=== PATIENT | male | born 1965 | race African-American/Black ===

== ENCOUNTER 2016-04-15 14:05 | Inpatient (IN) | payer BC ==
[~2016-04-15] VITALS: Ht 182.9 cm; Wt 110.7 kg
[2016-04-15] VITALS (11 sets, daily range): BP systolic 136–170; BP diastolic 62–84
[~2016-04-15 14:05] MED LIST: AMIT25TA PO; CARV3.12 PO; DULO60CA6 PO; GABA-585 PO; GLIP10TA13 PO; INSU100C SQ; INSU100I13 SQ; LOSA25TA4 PO; METF750T PO; METF750T2 PO; NORT10CA PO; PANT40TA3 PO; PROM25TA10 PO; SILD100T PO; VENTOLIN HFA8 GM IH
[2016-04-15] MEDS ORDERED: DEXTROSE 50% 25 GM / 50ML DISP.SYRIN. IV PRN (17:15)
[2016-04-15] MEDS ORDERED: ALPRAZOLAM 0.5 MG TABLET PO PRN (17:30)
[2016-04-15] MEDS ORDERED: SPIR25TA3 PO (17:36)
[2016-04-15] MEDS ORDERED: ASPI325T4 PO (17:36)
[2016-04-15] MEDS ORDERED: SACU1TAB7 PO (17:36)
[2016-04-15] MEDS ORDERED: MULT-246 PO (17:36)
[2016-04-15] MEDS ORDERED: GLIP5TAB10 PO (17:36)
[2016-04-15] MEDS ORDERED: DULO60CA6 PO (17:36)
[2016-04-15] MEDS ORDERED: DIGO125T PO (17:36)
[2016-04-15] MEDS ORDERED: POTA10CA PO (17:36)
[2016-04-15] MEDS ORDERED: FURO-68 PO (17:36)
[2016-04-15] MEDS ORDERED: NAPR500T3 PO (17:36)
[2016-04-15] MEDS ORDERED: ALPR0.5T PO (17:36)
[2016-04-15] MEDS ORDERED: CARV12.52 PO (17:36)
[2016-04-15] MEDS: FUROSEMIDE INJ 100 MG in IV NORMAL SALINE 100ML 100 ML IV PRN (18:04)
[2016-04-15] MEDS: DOBUTAMINE 500MG/250ML PREMIX 250 ML IV PRN (18:04)
--- NOTE | 2016-04-15 18:05 | EKG ---
[facility] [address] [place] [address] Test Date: 2016-04-15 Test Time: 17:56:10 Pat Name: MEGHANA URENA Department: Room: 261 1 Gender: M Chairman Of The Board: BELINDA : 1965 Requested By: CAIN GATICA Order Number: [id number] Reading MD: Halie English Measurements Intervals [place] Rate: 88 P: 54 NC: 164 QRS: 71 QRSD: 88 T: 26 QT: 300 QTc: 366 Interpretive Statements SINUS RHYTHM NORMAL EKG Electronically Signed On 04-21-2016 14:27:53 EXECUTIVE ASSISTANT TO PRESIDENT by Halie English
[2016-04-15 18:07] LABS: HEMATOCRIT 31.8 % (39.0-53.0); HEMOGLOBIN 10.3 g/dL (13.0-17.5); RED BLOOD COUNT 3.41 x10^6/uL (4.30-5.70); RED CELL DISTRIBUTION WIDTH 13.9 % (11.5-14.5); WHITE BLOOD COUNT 4.8 x10^3/uL (4.0-11.0)
[2016-04-15] MEDS: GLIPIZIDE 5 MG TABLET PO SCH (18:14)
[2016-04-15 18:15] LABS: PROTHROMBIN TIME PATIENT 12.4 SEC (11.7-14.0)
[2016-04-15] MEDS ORDERED: INSULIN ASPART 300 UNITS/3 ML INSULN.PEN SQ ONE (18:15)
[2016-04-15 18:30] LABS: ALBUMIN 3.4 g/dL (3.4-5.0); ALBUMIN/GLOBULIN RATIO 0.9 (1.0-1.7); CALCIUM 9.2 mg/dL (8.5-10.1); CREATININE 1.2 mg/dL (0.7-1.3); GFR 77.9; TOTAL BILIRUBIN 0.3 mg/dL (0.2-1.0)
--- NOTE | 2016-04-15 18:36 | PDOC1 ---
History and Physical Date of Admission Date of Admission DATE: 04/15/16 TIME: 18:22 Identification/Chief Complaint Chief Complaint Dyspnea History of Present Illness History of Present Illness Pt is a 51 y o gentleman that has an advanced nonischemic cardiomyopathy, DM, HTN and previous substance abuse problems. The pt has been having progressive dyspnea, edema and a 20 lbs weight gain in a matter of days. He was given diuretics as an out-pt but this did not improve his condition and the urine output was poor. Pt brought in as a direct admission for further treatment. Past Medical History Cardiovascular: HTN, Hyperlipidemia Pulmonary: Bronchitis GI: GERD Heme/Onc: Anemia NOS Psych: Anxiety, Addictions Endocrine: Diabetes Social History ALCOHOL: none Drugs: None Current Medications Current Medications Current Medications Dobutamine HCl/ Dextrose 250 ml @ 0 mls/hr CONT PRN IV SEE I/O RECORD Last administered on 04/15/16 18:04; Start 04/15/16 at 17:15 Furosemide/Sodium Chloride (Lasix Drip/Iv Sodium Chloride 0.9% 100ml) 100 ml @ 0 mls/hr CONT PRN IV SEE I/O RECORD Last administered on 04/15/16 18:04; Start 04/15/16 at 17:15 Insulin Detemir (Levemir) 30 units QHS SQ ; Start 04/15/16 at 21:00 Insulin Aspart (Novolog) 0-5 UNITS TIDWMEALS SQ ; Start 04/16/16 at 08:00 Dextrose 12.5 gm PRN Q15MIN PRN IV SEE COMMENTS; Start 04/15/16 at 17:15 Alprazolam (Xanax) 0.5 mg PRN Q8HRS PRN PO ANXIETY / AGITATION; Start 04/15/16 at 17:30 Aspirin (Meena Aspirin) 325 mg DAILY PO ; Start 04/16/16 at 09:00 Carvedilol (Coreg) 12.5 mg BIDWMEALS PO ; Start 04/16/16 at 08:00 Digoxin (Lanoxin) 125 mcg DAILY PO ; Start 04/16/16 at 09:00 Gabapentin (Neurontin) 100 mg HS PO ; Start 04/15/16 at 21:00 Glipizide (Glucotrol) 5 mg BIDBFRMEAL PO Last administered on 04/15/16 18:14; Start 04/15/16 at 18:00 Naproxen (Naprosyn) 500 mg BID PO ; Start 04/15/16 at 21:00 Nortriptyline HCl (Pamelor) 10 mg QHS PO ; Start 04/15/16 at 21:00 Sacubitril/ Valsartan (Entresto 49 Mg-51 Mg) 1 tab BID PO ; Start 04/15/16 at 21: 00 Duloxetine HCl (Cymbalta) 60 mg DAILY PO ; Start 04/16/16 at 09:00 Insulin Aspart (Novolog) 15 units TIDBFRMEAL SQ ; Start 04/16/16 at 18:00 Metformin HCl (Glucophage Xr) 750 mg DAILYWBKFT PO ; Start 04/16/16 at 08:00 Multivitamins/ Calcium (Thera M Plus) 1 tab DAILY PO ; Start 04/16/16 at 09:00 Potassium Chloride (Klor-Con) 10 meq DAILYWBKFT PO ; Start 04/16/16 at 08:00 Albuterol Sulfate (Ventolin Neb Soln) 2.5 mg RTQID NEB ; Start 04/15/16 at 20:00 Insulin Aspart (Novolog) 15 units 1X ONCE SQ Last administered on 04/15/16t 18: 16; Start 04/15/16 at 18:15; Stop 04/15/16 at 18:16; Status DC Active Scripts Active Reported Xanax (Alprazolam) 0.5 Mg Tablet 0.5 Mg PO PRN Q8HRS PRN Naproxen 500 Mg Tablet 500 Mg PO BID Entresto 49 mg-51 mg Tablet (Sacubitril/Valsartan) 1 Each Tablet 1 Each PO BID Multi-Vitamin Daily (Multivitamin) 1 Each Tablet 1 Each PO DAILY Potassium Chloride 10 Meq Capsule.er 10 Meq PO DAILY Carvedilol 12.5 Mg Tablet 12.5 Mg PO BIDWMEALS Digoxin 125 Mcg Tablet 125 Mcg PO DAILY Spironolactone 25 Mg Tablet 25 Mg PO BID Aspirin 325 Mg Tablet 325 Mg PO DAILY Lasix (Furosemide) 40 Mg Tablet 40 Mg PO DAILY Cymbalta (Duloxetine Hcl) 60 Mg Capsule.dr 60 Mg PO DAILY Glipizide 5 Mg Tablet 5 Mg PO BID Ventolin Hfa (Albuterol Sulfate) 8 Gm Hfa.aer.ad 8 Gm IH Glucophage Xr (Metformin Hcl) 750 Mg Tab.er.24h 750 Mg PO DAILYWBKFT Nortriptyline Hcl 10 Mg Capsule 2 Cap PO QHS Neurontin (Gabapentin) 100 Mg Capsule 100 Mg PO HS Humalog (Insulin Lispro) 100 Unit/1 Ml Cartridge 15 Unit SQ TIDBFRMEAL Lantus Solostar (Insulin Glargine,Hum.rec.anlog) 100 Unit/1 Ml Insuln.pen 30 Unit SQ QHS Allergies Allergies: Coded Allergies: No Known Drug Allergies (Unverified , 07/28/15) Physical Exam General: Alert, Oriented X3, Cooperative HEENT: Atraumatic, PERRLA Lungs: Other (basal rales, mild wheezing) Heart: S1S2, RRR, jugular vein distention, other (I/ syst murmur) Abdomen: Normal bowel sounds, Soft, Other (possible ascitis) Rectal Exam: not examined Extremities: Other ((++) edema) Neuro: Normal gait, Normal speech, Strength at 5/5 X4 ext, Normal tone, Sensation intact, Cranial nerves 3-12 NL, Reflexes 2+ Vitals Vitals Vital Signs Date Time Temp Pulse Resp B/P Pulse Ox O2 Delivery O2 Flow Rate FiO2 04/15/16 16:31 98.2 90 17 136/76 97 Room Air 98.2 Labs Labs Laboratory Tests Test 04/15/16 17:09 04/15/16 18:00 Glucose (Fingerstick) 410mg/dL (70-99) White Blood Count 4.8x10^3/uL (4.0-11.0) Red Blood Count 3.41x10^6/uL (4.30-5.70) Hemoglobin 10.3g/dL (13.0-17.5) Hematocrit 31.8% (39.0-53.0) Mean Corpuscular Volume 93fL (79-100) Mean Corpuscular Hemoglobin 30pg (25-35) Mean Corpuscular Hemoglobin Concent 32g/dL (31-37) Red Cell Distribution Width 13.9% (11.5-14.5) Platelet Count 194x10^3/uL (140-400) Laboratory Tests Test 04/15/16 17:09 04/15/16 18:00 Glucose (Fingerstick) 410mg/dL (70-99) White Blood Count 4.8x10^3/uL (4.0-11.0) Red Blood Count 3.41x10^6/uL (4.30-5.70) Hemoglobin 10.3g/dL (13.0-17.5) Hematocrit 31.8% (39.0-53.0) Mean Corpuscular Volume 93fL (79-100) Mean Corpuscular Hemoglobin 30pg (25-35) Mean Corpuscular Hemoglobin Concent 32g/dL (31-37) Red Cell Distribution Width 13.9% (11.5-14.5) Platelet Count 194x10^3/uL (140-400) VTE Prophylaxis Ordered VTE Prophylaxis Devices: Yes VTE Pharmacological Prophylaxi: No Assessment/Plan Assessment/Plan This pt comes in with acute on chronic CHF secondary to systolic dysfunction. He also has a very poorly controlled DM and may have renal insufficiency. Will start a dobutamine drip, a Lasix drip and increase the pt's insulin as well as controlling the diet. Check labs. Depending on progress will then make further recommendations for work up and treatment. CAIN GATICA MD Apr 15, 2016 18:36
[2016-04-15 20:09] LABS: BARBITURATES NEG (NEG); BENZODIAZEPINES NEG (NEG); CANNABINOIDS NEG (NEG); COCAINE POS (NEG); METHADONE NEG (NEG); OPIATES NEG (NEG); PHENCYCLIDINE NEG (NEG)
[2016-04-15 20:10] LABS: ETHANOL, URINE NEG (NEG)
[2016-04-15] MEDS: ALBUTEROL SULFATE 2.5 MG/3 ML NEBU. NEB SCH (20:24)
[2016-04-15] MEDS: GABAPENTIN 100 MG CAPSULE. PO SCH (21:18)
[2016-04-15] MEDS: NORTRIPTYLINE 10 MG CAPSULE PO SCH (21:18)
[2016-04-15] MEDS: NAPROXEN 500 MG TABLET PO SCH (21:19)
[2016-04-15] MEDS: SACUBITRIL/VALSARTAN 49/51MG TABLET. PO SCH (21:20)
[2016-04-15] MEDS: INSULIN DETEMIR 300 UNITS/3 ML INSULN.PEN. SQ SCH (21:24)
[2016-04-16] VITALS (14 sets, daily range): BP systolic 97–146; BP diastolic 52–78
[2016-04-16] MEDS: FUROSEMIDE INJ 100 MG in IV NORMAL SALINE 100ML 100 ML IV PRN ×2 (03:06→13:36)
[2016-04-16] MEDS: ALBUTEROL SULFATE 2.5 MG/3 ML NEBU. NEB SCH ×4 (07:37→19:35)
[2016-04-16] MEDS: DOBUTAMINE 500MG/250ML PREMIX 250 ML IV PRN ×2 (08:20→23:26)
[2016-04-16] MEDS: NAPROXEN 500 MG TABLET PO SCH ×2 (08:22→21:29)
[2016-04-16] MEDS: DULOXETINE HCL 30 MG CAPSULE.DR. PO SCH (08:23)
[2016-04-16] MEDS: CARVEDILOL 12.5 MG TABLET PO SCH ×2 (08:23→16:30)
[2016-04-16] MEDS: GLIPIZIDE 5 MG TABLET PO SCH ×2 (08:23→16:25)
[2016-04-16] MEDS: ASPIRIN 325 MG TABLET PO SCH (08:24)
[2016-04-16] MEDS: POTASSIUM CHLORIDE 10 MEQ TABLET.ER. PO SCH (08:24)
[2016-04-16] MEDS: DIGOXIN 125 MCG TABLET PO SCH (08:24)
[2016-04-16] MEDS: MULTIVITAMIN with MINERAL TABLET. PO SCH (08:24)
[2016-04-16] MEDS: METFORMIN XR 500 MG TAB.ER.24H PO SCH (08:25)
[2016-04-16] MEDS: INSULIN ASPART 300 UNITS/3 ML INSULN.PEN SQ SCH ×4 (08:37→17:08)
[2016-04-16] MEDS: SACUBITRIL/VALSARTAN 49/51MG TABLET. PO SCH ×2 (08:41→21:30)
--- NOTE | 2016-04-16 08:57 | RAD ---
Chest, 2 views, 04/15/2016: History: Shortness of breath, congestive heart failure The depth of inspiration on the PA view is suboptimal. The heart size and pulmonary vascularity are normal. No pulmonary infiltrates are seen. There is no evidence of pleural fluid. IMPRESSION: No acute cardiopulmonary abnormality is detected.
--- NOTE | 2016-04-16 10:22 | PDOC ---
PROGRESS NOTES Subjective Subjective Patient reports he is feeling better. His subjective improvement of the edema and stated he is not as short of breath. No new complaints. Objective Objective Vital Signs Date Time Temp Pulse Resp B/P Pulse Ox O2 Delivery O2 Flow Rate FiO2 04/16/16 08:41 106 115/70 04/16/16 08:00 Room Air 04/16/16 07:39 98 04/16/16 06:34 98.3 18 98.3 04/16/16 02:20 96.0 Intake and Output 04/16/16 07:00 Intake Total 606 ml Output Total 1000 ml Balance -394 ml Intake Oral 300 ml Other 306 ml Output Urine Total 1000 ml # Voids 6 Physical Exam Abdomen: Normal bowel sounds, Other (mildly distended with possible acities) Heart: Regular rate, Normal S1, Normal S2, No murmurs Extremities: No clubbing, No cyanosis, Other (mild edema of lower extremities) General: Alert, Oriented X3, Cooperative, No acute distress HEENT: Atraumatic Lungs: Normal air movement, Other (mild diffuse crackles improving) Neck: Supple, Other (JVD improving) Neuro: Other (no gross focal deficits) Assessment Assessment Patient presented with acute on chronic CHF and is showing clinical improvement on lasix and dobutamine drip. His vitals have remained stable. He also has poorly controlled diabetes and has been having labile blood sugars since admission. His initial BMP was significant for only a low normal NA of 135 and BUN of 32. I am going to be discussing with the patient when I can talk to him alone without family present about his future, options, prognosis. I think that a lot of the patient's deterioration is that he is secretively continuing to have a problem with substance abuse and is hiding this from the family. If this is the case I also have to tell him that he will not be able to be considered for a heart transplant. Plan Plan of Care Will continue with current medical therapy, will eventually transition to oral lasix. Will obtain a BMP now and in the AM to assess electrolyte status, renal function and blood sugar; will adjust medications accordingly. Comment Review of Relevant I have reviewed the following items rc (where applicable) has been applied. Labs Laboratory Tests Test 04/15/16 17:09 04/15/16 18:00 04/15/16 19:30 04/15/16 20:59 Glucose (Fingerstick) 410mg/dL (70-99) 305mg/dL (70-99) White Blood Count 4.8x10^3/uL (4.0-11.0) Red Blood Count 3.41x10^6/uL (4.30-5.70) Hemoglobin 10.3g/dL (13.0-17.5) Hematocrit 31.8% (39.0-53.0) Mean Corpuscular Volume 93fL (79-100) Mean Corpuscular Hemoglobin 30pg (25-35) Mean Corpuscular Hemoglobin Concent 32g/dL (31-37) Red Cell Distribution Width 13.9% (11.5-14.5) Platelet Count 194x10^3/uL (140-400) Prothrombin Time 12.4SEC (11.7-14.0) Prothromb Time International Ratio 1.0 (0.8-1.1) Activated Partial Thromboplast Time 26SEC (24-38) Sodium Level 135mmol/L (136-145) Potassium Level 5.0mmol/L (3.5-5.1) Chloride Level 99mmol/L (98-107) Carbon Dioxide Level 28mmol/L (21-32) Anion Gap 8 (6-14) Blood Urea Nitrogen 32mg/dL (8-26) Creatinine 1.2mg/dL (0.7-1.3) Estimated GFR (Cockcroft-Gault) 77.9 BUN/Creatinine Ratio 27 (6-20) Glucose Level 382mg/dL (70-99) Calcium Level 9.2mg/dL (8.5-10.1) Total Bilirubin 0.3mg/dL (0.2-1.0) Aspartate Amino Transf (AST/SGOT) 13U/L (15-37) Alanine Aminotransferase (ALT/SGPT) 21U/L (16-63) Alkaline Phosphatase 87U/L (46-116) Total Protein 7.0g/dL (6.4-8.2) Albumin 3.4g/dL (3.4-5.0) Albumin/Globulin Ratio 0.9 (1.0-1.7) Urine Opiates Screen Neg (NEG) Urine Methadone Screen Neg (NEG) Urine Barbiturates Neg (NEG) Urine Phencyclidine Screen Neg (NEG) Urine Amphetamine/Methamphetamine Neg (NEG) Urine Benzodiazepines Screen Neg (NEG) Urine Cocaine Screen Pos (NEG) Urine Cannabinoids Screen Neg (NEG) Urine Ethyl Alcohol Neg (NEG) Test 04/16/16 07:22 Glucose (Fingerstick) 154mg/dL (70-99) Laboratory Tests Test 04/15/16 17:09 04/15/16 18:00 04/15/16 19:30 04/15/16 20:59 Glucose (Fingerstick) 410mg/dL (70-99) 305mg/dL (70-99) White Blood Count 4.8x10^3/uL (4.0-11.0) Red Blood Count 3.41x10^6/uL (4.30-5.70) Hemoglobin 10.3g/dL (13.0-17.5) Hematocrit 31.8% (39.0-53.0) Mean Corpuscular Volume 93fL (79-100) Mean Corpuscular Hemoglobin 30pg (25-35) Mean Corpuscular Hemoglobin Concent 32g/dL (31-37) Red Cell Distribution Width 13.9% (11.5-14.5) Platelet Count 194x10^3/uL (140-400) Prothrombin Time 12.4SEC (11.7-14.0) Prothromb Time International Ratio 1.0 (0.8-1.1) Activated Partial Thromboplast Time 26SEC (24-38) Sodium Level 135mmol/L (136-145) Potassium Level 5.0mmol/L (3.5-5.1) Chloride Level 99mmol/L (98-107) Carbon Dioxide Level 28mmol/L (21-32) Anion Gap 8 (6-14) Blood Urea Nitrogen 32mg/dL (8-26) Creatinine 1.2mg/dL (0.7-1.3) Estimated GFR (Cockcroft-Gault) 77.9 BUN/Creatinine Ratio 27 (6-20) Glucose Level 382mg/dL (70-99) Calcium Level 9.2mg/dL (8.5-10.1) Total Bilirubin 0.3mg/dL (0.2-1.0) Aspartate Amino Transf (AST/SGOT) 13U/L (15-37) Alanine Aminotransferase (ALT/SGPT) 21U/L (16-63) Alkaline Phosphatase 87U/L (46-116) Total Protein 7.0g/dL (6.4-8.2) Albumin 3.4g/dL (3.4-5.0) Albumin/Globulin Ratio 0.9 (1.0-1.7) Urine Opiates Screen Neg (NEG) Urine Methadone Screen Neg (NEG) Urine Barbiturates Neg (NEG) Urine Phencyclidine Screen Neg (NEG) Urine Amphetamine/Methamphetamine Neg (NEG) Urine Benzodiazepines Screen Neg (NEG) Urine Cocaine Screen Pos (NEG) Urine Cannabinoids Screen Neg (NEG) Urine Ethyl Alcohol Neg (NEG) Test 04/16/16 07:22 Glucose (Fingerstick) 154mg/dL (70-99) Medications Current Medications Dobutamine HCl/ Dextrose 250 ml @ 0 mls/hr CONT PRN IV SEE I/O RECORD Last administered on 04/16/16 08:20; Start 04/15/16 at 17:15 Furosemide/Sodium Chloride (Lasix Drip/Iv Sodium Chloride 0.9% 100ml) 100 ml @ 0 mls/hr CONT PRN IV SEE I/O RECORD Last administered on 04/16/16 03:06; Start 04/15/16 at 17:15 Insulin Detemir (Levemir) 30 units QHS SQ Last administered on 04/15/16 21:24; Start 04/15/16 at 21:00 Insulin Aspart (Novolog) 0-5 UNITS TIDWMEALS SQ Last administered on 04/16/16 08:37; Start 04/16/16 at 08:00 Dextrose 12.5 gm PRN Q15MIN PRN IV SEE COMMENTS; Start 04/15/16 at 17:15 Alprazolam (Xanax) 0.5 mg PRN Q8HRS PRN PO ANXIETY / AGITATION; Start 04/15/16 at 17:30 Aspirin (Meena Aspirin) 325 mg DAILY PO Last administered on 04/16/16 08:24; Start 04/16/16 at 09:00 Carvedilol (Coreg) 12.5 mg BIDWMEALS PO Last administered on 04/16/16 08:23; Start 04/16/16 at 08:00 Digoxin (Lanoxin) 125 mcg DAILY PO Last administered on 04/16/16 08:24; Start 04/16/16 at 09:00 Gabapentin (Neurontin) 100 mg HS PO Last administered on 04/15/16 21:18; Start 04/15/16 at 21:00 Glipizide (Glucotrol) 5 mg BIDBFRMEAL PO Last administered on 04/16/16 08:23; Start 04/15/16 at 18:00 Naproxen (Naprosyn) 500 mg BID PO Last administered on 04/16/16 08:22; Start at 21:00 Nortriptyline HCl (Pamelor) 10 mg QHS PO Last administered on 04/15/16 21:18; Start 04/15/16 at 21:00 Sacubitril/ Valsartan (Entresto 49 Mg-51 Mg) 1 tab BID PO Last administered on 04/16/16 08:41; Start 04/15/16 at 21:00 Duloxetine HCl (Cymbalta) 60 mg DAILY PO Last administered on 04/16/16 08:23; Start 04/16/16 at 09:00 Insulin Aspart (Novolog) 15 units TIDBFRMEAL SQ ; Start 04/16/16 at 18:00 Metformin HCl (Glucophage Xr) 750 mg DAILYWBKFT PO Last administered on 08:25; Start 04/16/16 at 08:00 Multivitamins/ Calcium (Thera M Plus) 1 tab DAILY PO Last administered on 08:24; Start 04/16/16 at 09:00 Potassium Chloride (Klor-Con) 10 meq DAILYWBKFT PO Last administered on 08:24; Start 04/16/16 at 08:00 Albuterol Sulfate (Ventolin Neb Soln) 2.5 mg RTQID NEB Last administered on 04/16 07:37; Start 04/15/16 at 20:00 Insulin Aspart (Novolog) 15 units 1X ONCE SQ Last administered on 04/15/16 18: 16; Start 04/15/16 at 18:15; Stop 04/15/16 at 18:16; Status DC Active Scripts Active Reported Xanax (Alprazolam) 0.5 Mg Tablet 0.5 Mg PO PRN Q8HRS PRN Naproxen 500 Mg Tablet 500 Mg PO BID Entresto 49 mg-51 mg Tablet (Sacubitril/Valsartan) 1 Each Tablet 1 Each PO BID Multi-Vitamin Daily (Multivitamin) 1 Each Tablet 1 Each PO DAILY Potassium Chloride 10 Meq Capsule.er 10 Meq PO DAILY Carvedilol 12.5 Mg Tablet 12.5 Mg PO BIDWMEALS Digoxin 125 Mcg Tablet 125 Mcg PO DAILY Spironolactone 25 Mg Tablet 25 Mg PO BID Aspirin 325 Mg Tablet 325 Mg PO DAILY Lasix (Furosemide) 40 Mg Tablet 40 Mg PO DAILY Cymbalta (Duloxetine Hcl) 60 Mg Capsule.dr 60 Mg PO DAILY Glipizide 5 Mg Tablet 5 Mg PO BID Ventolin Hfa (Albuterol Sulfate) 8 Gm Hfa.aer.ad 8 Gm IH Glucophage Xr (Metformin Hcl) 750 Mg Tab.er.24h 750 Mg PO DAILYWBKFT Nortriptyline Hcl 10 Mg Capsule 2 Cap PO QHS Neurontin (Gabapentin) 100 Mg Capsule 100 Mg PO HS Humalog (Insulin Lispro) 100 Unit/1 Ml Cartridge 15 Unit SQ TIDBFRMEAL Lantus Solostar (Insulin Glargine,Hum.rec.anlog) 100 Unit/1 Ml Insuln.pen 30 Unit SQ QHS Vitals/I & O Vital Sign - Last 24 Hours 04/15/16 04/15/16 04/15/16 04/15/16 16:05 16:31 18:00 18:30 Temp 98.2 98.2 Pulse 90 86 94 Resp 17 B/P 136/76 138/66 170/84 Pulse Ox 97 O2 Delivery Room Air Room Air 04/15/16 04/15/16 04/15/16 04/15/16 19:25 19:25 19:45 20:25 Temp 98.0 98.0 Pulse 101 97 Resp 18 B/P 140/78 141/62 Pulse Ox 97 O2 Delivery Room Air Room Air Room Air 04/15/16 04/15/16 04/15/16 04/15/16 20:26 20:30 21:20 21:20 Pulse 98 97 96 B/P 141/62 141/62 136/70 O2 Delivery Room Air 04/15/16 04/15/16 04/15/16 04/15/16 21:30 22:00 22:35 23:30 Temp 98.3 98.3 Pulse 96 108 102 98 Resp 16 B/P 136/70 140/74 140/74 138/64 Pulse Ox 95 O2 Delivery Room Air 04/16/16 04/16/16 04/16/16 04/16/16 00:30 01:30 02:20 03:11 Temp 98.0 98.0 Pulse 94 92 95 89 Resp 16 B/P 146/77 144/74 124/70 124/70 O2 Delivery Room Air Room Air O2 Flow Rate 96.0 04/16/16 04/16/16 04/16/16 04/16/16 04:20 06:34 07:39 08:00 Temp 98.3 98.3 Pulse 96 100 Resp 18 B/P 143/78 108/55 Pulse Ox 97 98 O2 Delivery Room Air Room Air Room Air 04/16/16 04/16/16 04/16/16 08:23 08:24 08:41 Pulse 101 102 106 B/P 115/70 115/70 115/70 Intake and Output 04/15/16 04/15/16 04/16/16 15:00 23:00 07:00 Intake Total 300 ml 306 ml Output Total 500 ml 500 ml Balance -200 ml -194 ml CAIN GATICA MD Apr 16, 2016 10:22
[2016-04-16 12:25] LABS: CALCIUM 9.7 mg/dL (8.5-10.1); CREATININE 1.3 mg/dL (0.7-1.3); POTASSIUM 4.1 mmol/L (3.5-5.1)
[2016-04-16] MEDS: NORTRIPTYLINE 10 MG CAPSULE PO SCH (21:30)
[2016-04-16] MEDS: GABAPENTIN 100 MG CAPSULE. PO SCH (21:31)
[2016-04-16] MEDS: INSULIN DETEMIR 300 UNITS/3 ML INSULN.PEN. SQ SCH (21:35)
[2016-04-17] VITALS (27 sets, daily range): BP systolic 86–137; BP diastolic 50–76
[2016-04-17] MEDS: FUROSEMIDE INJ 100 MG in IV NORMAL SALINE 100ML 100 ML IV PRN (00:32)
[2016-04-17 05:56] LABS: CALCIUM 9.6 mg/dL (8.5-10.1); CREATININE 1.5 mg/dL (0.7-1.3); GFR 60.2; POTASSIUM 3.7 mmol/L (3.5-5.1)
[2016-04-17] MEDS: INSULIN ASPART 300 UNITS/3 ML INSULN.PEN SQ SCH ×6 (08:00→17:54)
[2016-04-17] MEDS: NAPROXEN 500 MG TABLET PO SCH (08:17)
[2016-04-17] MEDS: DIGOXIN 125 MCG TABLET PO SCH (08:17)
[2016-04-17] MEDS: ASPIRIN 325 MG TABLET PO SCH (08:17)
[2016-04-17] MEDS: DULOXETINE HCL 30 MG CAPSULE.DR. PO SCH (08:17)
[2016-04-17] MEDS: METFORMIN XR 500 MG TAB.ER.24H PO SCH (08:18)
[2016-04-17] MEDS: POTASSIUM CHLORIDE 10 MEQ TABLET.ER. PO SCH (08:18)
[2016-04-17] MEDS: MULTIVITAMIN with MINERAL TABLET. PO SCH (08:18)
[2016-04-17] MEDS: GLIPIZIDE 5 MG TABLET PO SCH ×2 (08:18→17:04)
[2016-04-17] MEDS: SACUBITRIL/VALSARTAN 49/51MG TABLET. PO SCH ×2 (08:18→22:11)
[2016-04-17] MEDS: CARVEDILOL 12.5 MG TABLET PO SCH ×2 (08:22→17:00)
[2016-04-17] MEDS: ALBUTEROL SULFATE 2.5 MG/3 ML NEBU. NEB SCH ×4 (08:27→19:16)
--- NOTE | 2016-04-17 10:16 | PDOC ---
PROGRESS NOTES Subjective Subjective Patient reports his shortness of breath remains improved despite 3 lb gain in last 24 hours. Patient did report some dizziness while standing to use the restroom. No further complaints. Objective Objective Vital Signs Date Time Temp Pulse Resp B/P Pulse Ox O2 Delivery O2 Flow Rate FiO2 04/17/16 08:27 99 Room Air 04/17/16 08:22 100 116/65 04/17/16 07:48 98.0 17 98.0 04/16/16 02:20 96.0 Intake and Output 04/17/16 07:00 Intake Total 2060 ml Output Total 1475 ml Balance 585 ml Intake Oral 1400 ml IV Total 660 ml Output Urine Total 1475 ml # Voids 4 # Bowel Movements 1 Physical Exam Abdomen: Normal bowel sounds, Other (fluid evident in abdomen on exam) Heart: Regular rate, Normal S2 Extremities: No clubbing, No cyanosis, Other (mild edema in lower extremities) General: Alert, Oriented X3, Cooperative, No acute distress HEENT: Atraumatic Lungs: Clear to auscultation, Normal air movement Neck: No JVD Neuro: Other (no gross focal deficits) Assessment Assessment Acute on chronic CHF - on lasix and dobutamine drip, 3 lb weight gain in last 24 hours with some evidence of fluid overload in the abdomen Diabetes - reasonably controlled JANAK - BUN 39 Creatinine 1.5 Metabolic acidosis - CO2 of 33, could be secondary to diuresis Plan Plan of Care Will continue dobutamine drip for another 24 hours. Will discontinue lasix for now, consulting nephrology for further recommendations regarding renal function. Comment Review of Relevant I have reviewed the following items rc (where applicable) has been applied. Labs Laboratory Tests Test 04/15/16 17:09 04/15/16 18:00 04/15/16 19:30 04/15/16 20:59 Glucose (Fingerstick) 410mg/dL (70-99) 305mg/dL (70-99) White Blood Count 4.8x10^3/uL (4.0-11.0) Red Blood Count 3.41x10^6/uL (4.30-5.70) Hemoglobin 10.3g/dL (13.0-17.5) Hematocrit 31.8% (39.0-53.0) Mean Corpuscular Volume 93fL (79-100) Mean Corpuscular Hemoglobin 30pg (25-35) Mean Corpuscular Hemoglobin Concent 32g/dL (31-37) Red Cell Distribution Width 13.9% (11.5-14.5) Platelet Count 194x10^3/uL (140-400) Prothrombin Time 12.4SEC (11.7-14.0) Prothromb Time International Ratio 1.0 (0.8-1.1) Activated Partial Thromboplast Time 26SEC (24-38) Sodium Level 135mmol/L (136-145) Potassium Level 5.0mmol/L (3.5-5.1) Chloride Level 99mmol/L (98-107) Carbon Dioxide Level 28mmol/L (21-32) Anion Gap 8 (6-14) Blood Urea Nitrogen 32mg/dL (8-26) Creatinine 1.2mg/dL (0.7-1.3) Estimated GFR (Cockcroft-Gault) 77.9 BUN/Creatinine Ratio 27 (6-20) Glucose Level 382mg/dL (70-99) Calcium Level 9.2mg/dL (8.5-10.1) Total Bilirubin 0.3mg/dL (0.2-1.0) Aspartate Amino Transf (AST/SGOT) 13U/L (15-37) Alanine Aminotransferase (ALT/SGPT) 21U/L (16-63) Alkaline Phosphatase 87U/L (46-116) Total Protein 7.0g/dL (6.4-8.2) Albumin 3.4g/dL (3.4-5.0) Albumin/Globulin Ratio 0.9 (1.0-1.7) Urine Opiates Screen Neg (NEG) Urine Methadone Screen Neg (NEG) Urine Barbiturates Neg (NEG) Urine Phencyclidine Screen Neg (NEG) Urine Amphetamine/Methamphetamine Neg (NEG) Urine Benzodiazepines Screen Neg (NEG) Urine Cocaine Screen Pos (NEG) Urine Cannabinoids Screen Neg (NEG) Urine Ethyl Alcohol Neg (NEG) Test 04/16/16 07:22 04/16/16 11:38 04/16/16 11:43 04/16/16 16:27 Glucose (Fingerstick) 154mg/dL (70-99) 298mg/dL (70-99) 315mg/dL (70-99) Sodium Level 136mmol/L (136-145) Potassium Level 4.1mmol/L (3.5-5.1) Chloride Level 96mmol/L (98-107) Carbon Dioxide Level 36mmol/L (21-32) Anion Gap 4 (6-14) Blood Urea Nitrogen 31mg/dL (8-26) Creatinine 1.3mg/dL (0.7-1.3) Estimated GFR (Cockcroft-Gault) 71.0 Glucose Level 300mg/dL (70-99) Calcium Level 9.7mg/dL (8.5-10.1) Test 04/16/16 21:27 04/17/16 04:21 04/17/16 07:57 Glucose (Fingerstick) 147mg/dL (70-99) 124mg/dL (70-99) Sodium Level 141mmol/L (136-145) Potassium Level 3.7mmol/L (3.5-5.1) Chloride Level 100mmol/L (98-107) Carbon Dioxide Level 33mmol/L (21-32) Anion Gap 8 (6-14) Blood Urea Nitrogen 39mg/dL (8-26) Creatinine 1.5mg/dL (0.7-1.3) Estimated GFR (Cockcroft-Gault) 60.2 Glucose Level 97mg/dL (70-99) Calcium Level 9.6mg/dL (8.5-10.1) Laboratory Tests Test 04/16/16 11:38 04/16/16 11:43 04/16/16 16:27 04/16/16 21:27 Glucose (Fingerstick) 298mg/dL (70-99) 315mg/dL (70-99) 147mg/dL (70-99) Sodium Level 136mmol/L (136-145) Potassium Level 4.1mmol/L (3.5-5.1) Chloride Level 96mmol/L (98-107) Carbon Dioxide Level 36mmol/L (21-32) Anion Gap 4 (6-14) Blood Urea Nitrogen 31mg/dL (8-26) Creatinine 1.3mg/dL (0.7-1.3) Estimated GFR (Cockcroft-Gault) 71.0 Glucose Level 300mg/dL (70-99) Calcium Level 9.7mg/dL (8.5-10.1) Test 04/17/16 04:21 04/17/16 07:57 Sodium Level 141mmol/L (136-145) Potassium Level 3.7mmol/L (3.5-5.1) Chloride Level 100mmol/L (98-107) Carbon Dioxide Level 33mmol/L (21-32) Anion Gap 8 (6-14) Blood Urea Nitrogen 39mg/dL (8-26) Creatinine 1.5mg/dL (0.7-1.3) Estimated GFR (Cockcroft-Gault) 60.2 Glucose Level 97mg/dL (70-99) Calcium Level 9.6mg/dL (8.5-10.1) Glucose (Fingerstick) 124mg/dL (70-99) Medications Current Medications Dobutamine HCl/ Dextrose 250 ml @ 0 mls/hr CONT PRN IV SEE I/O RECORD Last administered on 04/16/16 23:26; Start 04/15/16 at 17:15 Furosemide/Sodium Chloride (Lasix Drip/Iv Sodium Chloride 0.9% 100ml) 100 ml @ 0 mls/hr CONT PRN IV SEE I/O RECORD Last administered on 04/17/16 00:32; Start 04/15/16 at 17:15 Insulin Detemir (Levemir) 30 units QHS SQ Last administered on 04/16/16 21:35; Start 04/15/16 at 21:00 Insulin Aspart (Novolog) 0-5 UNITS TIDWMEALS SQ Last administered on 04/16/16 17:00; Start 04/16/16 at 08:00 Dextrose 12.5 gm PRN Q15MIN PRN IV SEE COMMENTS; Start 04/15/16 at 17:15 Alprazolam (Xanax) 0.5 mg PRN Q8HRS PRN PO ANXIETY / AGITATION; Start 04/15/16 at 17:30 Aspirin (Meena Aspirin) 325 mg DAILY PO Last administered on 04/17/16 08:17; Start 04/16/16 at 09:00 Carvedilol (Coreg) 12.5 mg BIDWMEALS PO Last administered on 04/17/16 08:22; Start 04/16/16 at 08:00 Digoxin (Lanoxin) 125 mcg DAILY PO Last administered on 04/17/16 08:17; Start 04/16/16 at 09:00 Gabapentin (Neurontin) 100 mg HS PO Last administered on 04/16/16 21:31; Start 04/15/16 at 21:00 Glipizide (Glucotrol) 5 mg BIDBFRMEAL PO Last administered on 04/17/16 08:18; Start 04/15/16 at 18:00 Naproxen (Naprosyn) 500 mg BID PO Last administered on 04/17/16 08:17; Start at 21:00 Nortriptyline HCl (Pamelor) 10 mg QHS PO Last administered on 04/16/16 21:30; Start 04/15/16 at 21:00 Sacubitril/ Valsartan (Entresto 49 Mg-51 Mg) 1 tab BID PO Last administered on 04/17/16 08:18; Start 04/15/16 at 21:00 Duloxetine HCl (Cymbalta) 60 mg DAILY PO Last administered on 04/17/16 08:17; Start 04/16/16 at 09:00 Insulin Aspart (Novolog) 15 units TIDBFRMEAL SQ Last administered on 04/17/16 08:45; Start 04/16/16 at 18:00 Metformin HCl (Glucophage Xr) 750 mg DAILYWBKFT PO Last administered on 08:18; Start 04/16/16 at 08:00 Multivitamins/ Calcium (Thera M Plus) 1 tab DAILY PO Last administered on 08:18; Start 04/16/16 at 09:00 Potassium Chloride (Klor-Con) 10 meq DAILYWBKFT PO Last administered on 08:18; Start 04/16/16 at 08:00 Albuterol Sulfate (Ventolin Neb Soln) 2.5 mg RTQID NEB Last administered on 04/17 08:27; Start 04/15/16 at 20:00 Insulin Aspart (Novolog) 15 units 1X ONCE SQ Last administered on 04/15/16 18: 16; Start 04/15/16 at 18:15; Stop 04/15/16 at 18:16; Status DC Active Scripts Active Reported Xanax (Alprazolam) 0.5 Mg Tablet 0.5 Mg PO PRN Q8HRS PRN Naproxen 500 Mg Tablet 500 Mg PO BID Entresto 49 mg-51 mg Tablet (Sacubitril/Valsartan) 1 Each Tablet 1 Each PO BID Multi-Vitamin Daily (Multivitamin) 1 Each Tablet 1 Each PO DAILY Potassium Chloride 10 Meq Capsule.er 10 Meq PO DAILY Carvedilol 12.5 Mg Tablet 12.5 Mg PO BIDWMEALS Digoxin 125 Mcg Tablet 125 Mcg PO DAILY Spironolactone 25 Mg Tablet 25 Mg PO BID Aspirin 325 Mg Tablet 325 Mg PO DAILY Lasix (Furosemide) 40 Mg Tablet 40 Mg PO DAILY Cymbalta (Duloxetine Hcl) 60 Mg Capsule.dr 60 Mg PO DAILY Glipizide 5 Mg Tablet 5 Mg PO BID Ventolin Hfa (Albuterol Sulfate) 8 Gm Hfa.aer.ad 8 Gm IH Glucophage Xr (Metformin Hcl) 750 Mg Tab.er.24h 750 Mg PO DAILYWBKFT Nortriptyline Hcl 10 Mg Capsule 2 Cap PO QHS Neurontin (Gabapentin) 100 Mg Capsule 100 Mg PO HS Humalog (Insulin Lispro) 100 Unit/1 Ml Cartridge 15 Unit SQ TIDBFRMEAL Lantus Solostar (Insulin Glargine,Hum.rec.anlog) 100 Unit/1 Ml Insuln.pen 30 Unit SQ QHS Vitals/I & O Vital Sign - Last 24 Hours 04/16/16 04/16/16 04/16/16 04/16/16 10:53 11:50 15:18 15:34 Temp 98.1 97.8 98.1 97.8 Pulse 86 95 Resp 18 18 B/P 109/63 99/60 Pulse Ox 95 96 96 98 O2 Delivery Room Air Room Air Room Air Room Air 04/16/16 04/16/16 04/16/16 04/16/16 16:30 19:30 19:37 20:05 Temp 97.9 97.9 Pulse 94 84 85 Resp 20 21 B/P 127/63 103/59 102/57 Pulse Ox 96 98 94 O2 Delivery Room Air Room Air 04/16/16 04/16/16 04/16/16 04/16/16 20:28 20:30 21:30 21:30 Pulse 86 87 86 B/P 97/52 119/71 119/71 Pulse Ox 97 100 O2 Delivery Room Air 04/16/16 04/16/16 04/17/16 04/17/16 22:30 23:22 00:30 01:30 Temp 97.8 97.8 Pulse 88 87 88 84 Resp 14 B/P 120/71 133/67 137/71 114/57 Pulse Ox 96 97 94 99 04/17/16 04/17/16 04/17/16 04/17/16 02:35 03:30 04:30 05:30 Temp 98.2 98.2 Pulse 90 92 94 98 Resp 20 B/P 100/55 93/54 114/61 99/55 Pulse Ox 97 97 96 98 04/17/16 04/17/16 04/17/16 04/17/16 07:48 08:00 08:17 08:18 Temp 98.0 98.0 Pulse 107 100 100 Resp 17 B/P 111/60 111/60 111/60 Pulse Ox 99 O2 Delivery Room Air Room Air 04/17/16 04/17/16 08:22 08:27 Pulse 100 B/P 116/65 Pulse Ox 99 O2 Delivery Room Air Intake and Output 04/16/16 04/16/16 04/17/16 15:00 23:00 07:00 Intake Total 1300 ml 760 ml Output Total 550 ml 350 ml 575 ml Balance -550 ml 950 ml 185 ml CAIN GATICA MD Apr 17, 2016 10:16
--- NOTE | 2016-04-17 16:03 | PDOC2 ---
CONSULT Date of Consult Date of Consult DATE: 04/17/16 TIME: 16:02 Reason for Consult Reason for Consult: JANAK Referring Physician Referring Physician: Dr Tolliver Identification/Chief Complaint Chief Complaint CHF Exac Problems: Source Source: Chart review, Patient History of Present Illness Reason for Visit: as dictated Past Medical History Cardiovascular: AFIB, CHF, HTN, Hyperlipidemia, Other (Pericarditis) Pulmonary: Bronchitis GI: GERD, Irritable bowel disease, Peptic Ulcer disease Heme/Onc: Anemia NOS Psych: Anxiety, Addictions Endocrine: Diabetes Dermatology: Other Family History Family History: Cancer, Diabetes Social History ALCOHOL: other (QUIT) Drugs: None, Cocaine Lives: with Family Current Medications Current Medications Current Medications Dobutamine HCl/ Dextrose 250 ml @ 0 mls/hr CONT PRN IV SEE I/O RECORD Last administered on 04/16/16 23:26; Start 04/15/16 at 17:15 Furosemide/Sodium Chloride (Lasix Drip/Iv Sodium Chloride 0.9% 100ml) 100 ml @ 0 mls/hr CONT PRN IV SEE I/O RECORD Last administered on 04/17/16 00:32; Start 04/15/16 at 17:15; Stop 04/17/16 at 13:09; Status DC Insulin Detemir (Levemir) 30 units QHS SQ Last administered on 04/16/16 21:35; Start 04/15/16 at 21:00 Insulin Aspart (Novolog) 0-5 UNITS TIDWMEALS SQ Last administered on 04/16/16 17:00; Start 04/16/16 at 08:00 Dextrose 12.5 gm PRN Q15MIN PRN IV SEE COMMENTS; Start 04/15/16 at 17:15 Alprazolam (Xanax) 0.5 mg PRN Q8HRS PRN PO ANXIETY / AGITATION; Start 04/15/16 at 17:30 Aspirin (Meena Aspirin) 325 mg DAILY PO Last administered on 04/17/16 08:17; Start 04/16/16 at 09:00 Carvedilol (Coreg) 12.5 mg BIDWMEALS PO Last administered on 04/17/16 08:22; Start 04/16/16 at 08:00 Digoxin (Lanoxin) 125 mcg DAILY PO Last administered on 04/17/16 08:17; Start 04/16/16 at 09:00 Gabapentin (Neurontin) 100 mg HS PO Last administered on 04/16/16 21:31; Start 04/15/16 at 21:00 Glipizide (Glucotrol) 5 mg BIDBFRMEAL PO Last administered on 04/17/16 08:18; Start 04/15/16 at 18:00 Naproxen (Naprosyn) 500 mg BID PO Last administered on 04/17/16 08:17; Start at 21:00 Nortriptyline HCl (Pamelor) 10 mg QHS PO Last administered on 04/16/16 21:30; Start 04/15/16 at 21:00 Sacubitril/ Valsartan (Entresto 49 Mg-51 Mg) 1 tab BID PO Last administered on 04/17/16 08:18; Start 04/15/16 at 21:00 Duloxetine HCl (Cymbalta) 60 mg DAILY PO Last administered on 04/17/16 08:17; Start 04/16/16 at 09:00 Insulin Aspart (Novolog) 15 units TIDBFRMEAL SQ Last administered on 04/17/16 08:45; Start 04/16/16 at 18:00 Metformin HCl (Glucophage Xr) 750 mg DAILYWBKFT PO Last administered on 08:18; Start 04/16/16 at 08:00 Multivitamins/ Calcium (Thera M Plus) 1 tab DAILY PO Last administered on 08:18; Start 04/16/16 at 09:00 Potassium Chloride (Klor-Con) 10 meq DAILYWBKFT PO Last administered on 08:18; Start 04/16/16 at 08:00 Albuterol Sulfate (Ventolin Neb Soln) 2.5 mg RTQID NEB Last administered on 04/17 11:41; Start 04/15/16 at 20:00 Insulin Aspart (Novolog) 15 units 1X ONCE SQ Last administered on 04/15/16 18: 16; Start 04/15/16 at 18:15; Stop 04/15/16 at 18:16; Status DC Active Scripts Active Reported Xanax (Alprazolam) 0.5 Mg Tablet 0.5 Mg PO PRN Q8HRS PRN Naproxen 500 Mg Tablet 500 Mg PO BID Entresto 49 mg-51 mg Tablet (Sacubitril/Valsartan) 1 Each Tablet 1 Each PO BID Multi-Vitamin Daily (Multivitamin) 1 Each Tablet 1 Each PO DAILY Potassium Chloride 10 Meq Capsule.er 10 Meq PO DAILY Carvedilol 12.5 Mg Tablet 12.5 Mg PO BIDWMEALS Digoxin 125 Mcg Tablet 125 Mcg PO DAILY Spironolactone 25 Mg Tablet 25 Mg PO BID Aspirin 325 Mg Tablet 325 Mg PO DAILY Lasix (Furosemide) 40 Mg Tablet 40 Mg PO DAILY Cymbalta (Duloxetine Hcl) 60 Mg Capsule.dr 60 Mg PO DAILY Glipizide 5 Mg Tablet 5 Mg PO BID Ventolin Hfa (Albuterol Sulfate) 8 Gm Hfa.aer.ad 8 Gm IH Glucophage Xr (Metformin Hcl) 750 Mg Tab.er.24h 750 Mg PO DAILYWBKFT Nortriptyline Hcl 10 Mg Capsule 2 Cap PO QHS Neurontin (Gabapentin) 100 Mg Capsule 100 Mg PO HS Humalog (Insulin Lispro) 100 Unit/1 Ml Cartridge 15 Unit SQ TIDBFRMEAL Lantus Solostar (Insulin Glargine,Hum.rec.anlog) 100 Unit/1 Ml Insuln.pen 30 Unit SQ QHS Allergies Allergies: Coded Allergies: No Known Drug Allergies (Unverified , 07/28/15) ROS Review of System as dictated in HPI otherwise -ve Physical Exam Physical Exam General Appearance: Awake Alert Oriented x 3 In no Distress Eyes: VIsion Unchanged Conjunctiva Normal EN: No EN Drainage Mucous Memb. moist Neck: no JVD min JVP Supple no Thyromegaly CVS: S1 S2 soft Murmur No Gallop No Rub no Edema Resp: no Rales no Rhonchi no Acc. Muscle use GI: BAS +ve NO Bruit Non Tender Non Distended : no CVA tenderness; no Suprapubic Tenderness SKIN: no petechial Rashes Breast Exam deferred; Dark plaques on farzaneh elbows Mu.Sk: Adequate ROM no Muscle Atrophy Heme: Unable to palpate Obvious LAD no opalp Splenomegaly NEURO: Good Strength and Tone Cranial Nerves II - XII grossly intact Psych: not Depressed no Active hallucination Vital Signs Vital Signs Date Time Temp Pulse Resp B/P Pulse Ox O2 Delivery O2 Flow Rate FiO2 04/17/16 15:45 93/52 04/17/16 15:16 97.7 94 17 99 Room Air 97.7 Assessment & Plan JANAK due to NSAID use along with Diureitics, Hypoperfusion fromlow BP and Cmypaothy. (VMN) Current FLuid and E-lyte status does not necessitate emergent need for Dialysis. Will re-evaluate in am Ch Systolic CHF - with signs of VOl depeltion BUT reports Wt gain ? Exac. Intravascular VOL Depeltion - 1L IVF due to NSAID use and Hypotension Anemia: check Iron; May need Epogen Transfuse as needed. HypoTN: hold ? Current BP meds - defer to Dr Tolliver Discussed Plan of Care and prognosis etc. at length with family. Labs Labs Laboratory Tests Test 04/15/16 17:09 04/15/16 18:00 04/15/16 19:30 04/15/16 20:59 Glucose (Fingerstick) 410mg/dL (70-99) 305mg/dL (70-99) White Blood Count 4.8x10^3/uL (4.0-11.0) Red Blood Count 3.41x10^6/uL (4.30-5.70) Hemoglobin 10.3g/dL (13.0-17.5) Hematocrit 31.8% (39.0-53.0) Mean Corpuscular Volume 93fL (79-100) Mean Corpuscular Hemoglobin 30pg (25-35) Mean Corpuscular Hemoglobin Concent 32g/dL (31-37) Red Cell Distribution Width 13.9% (11.5-14.5) Platelet Count 194x10^3/uL (140-400) Prothrombin Time 12.4SEC (11.7-14.0) Prothromb Time International Ratio 1.0 (0.8-1.1) Activated Partial Thromboplast Time 26SEC (24-38) Sodium Level 135mmol/L (136-145) Potassium Level 5.0mmol/L (3.5-5.1) Chloride Level 99mmol/L (98-107) Carbon Dioxide Level 28mmol/L (21-32) Anion Gap 8 (6-14) Blood Urea Nitrogen 32mg/dL (8-26) Creatinine 1.2mg/dL (0.7-1.3) Estimated GFR (Cockcroft-Gault) 77.9 BUN/Creatinine Ratio 27 (6-20) Glucose Level 382mg/dL (70-99) Calcium Level 9.2mg/dL (8.5-10.1) Total Bilirubin 0.3mg/dL (0.2-1.0) Aspartate Amino Transf (AST/SGOT) 13U/L (15-37) Alanine Aminotransferase (ALT/SGPT) 21U/L (16-63) Alkaline Phosphatase 87U/L (46-116) Total Protein 7.0g/dL (6.4-8.2) Albumin 3.4g/dL (3.4-5.0) Albumin/Globulin Ratio 0.9 (1.0-1.7) Urine Opiates Screen Neg (NEG) Urine Methadone Screen Neg (NEG) Urine Barbiturates Neg (NEG) Urine Phencyclidine Screen Neg (NEG) Urine Amphetamine/Methamphetamine Neg (NEG) Urine Benzodiazepines Screen Neg (NEG) Urine Cocaine Screen Pos (NEG) Urine Cannabinoids Screen Neg (NEG) Urine Ethyl Alcohol Neg (NEG) Test 04/16/16 07:22 04/16/16 11:38 04/16/16 11:43 04/16/16 16:27 Glucose (Fingerstick) 154mg/dL (70-99) 298mg/dL (70-99) 315mg/dL (70-99) Sodium Level 136mmol/L (136-145) Potassium Level 4.1mmol/L (3.5-5.1) Chloride Level 96mmol/L (98-107) Carbon Dioxide Level 36mmol/L (21-32) Anion Gap 4 (6-14) Blood Urea Nitrogen 31mg/dL (8-26) Creatinine 1.3mg/dL (0.7-1.3) Estimated GFR (Cockcroft-Gault) 71.0 Glucose Level 300mg/dL (70-99) Calcium Level 9.7mg/dL (8.5-10.1) Test 04/16/16 21:27 04/17/16 04:21 04/17/16 07:57 04/17/16 10:07 Glucose (Fingerstick) 147mg/dL (70-99) 124mg/dL (70-99) 124mg/dL (70-99) Sodium Level 141mmol/L (136-145) Potassium Level 3.7mmol/L (3.5-5.1) Chloride Level 100mmol/L (98-107) Carbon Dioxide Level 33mmol/L (21-32) Anion Gap 8 (6-14) Blood Urea Nitrogen 39mg/dL (8-26) Creatinine 1.5mg/dL (0.7-1.3) Estimated GFR (Cockcroft-Gault) 60.2 Glucose Level 97mg/dL (70-99) Calcium Level 9.6mg/dL (8.5-10.1) Test 04/17/16 12:49 Glucose (Fingerstick) 100mg/dL (70-99) Laboratory Tests Test 04/16/16 16:27 04/16/16 21:27 04/17/16 04:21 04/17/16 07:57 Glucose (Fingerstick) 315mg/dL (70-99) 147mg/dL (70-99) 124mg/dL (70-99) Sodium Level 141mmol/L (136-145) Potassium Level 3.7mmol/L (3.5-5.1) Chloride Level 100mmol/L (98-107) Carbon Dioxide Level 33mmol/L (21-32) Anion Gap 8 (6-14) Blood Urea Nitrogen 39mg/dL (8-26) Creatinine 1.5mg/dL (0.7-1.3) Estimated GFR (Cockcroft-Gault) 60.2 Glucose Level 97mg/dL (70-99) Calcium Level 9.6mg/dL (8.5-10.1) Test 04/17/16 10:07 04/17/16 12:49 Glucose (Fingerstick) 124mg/dL (70-99) 100mg/dL (70-99) Images Images Left ventricle systolic function is moderately to severely impaired. The Ejection Fraction is 30%. The Left Ventricle is dilated. The left atrium size is normal. The right atrium size is normal. The aortic valve is mildly calcified but opens well. Doppler and Color Flow revealed trace mitral regurgitation. Doppler and Color Flow revealed trace tricuspid regurgitation. The PA pressure was estimated at 22 mmHg. The pulmonary valve is normal in structure and function. There is no evidence of significant pericardial effusion. Left ventricle systolic function is moderately to severely impaired. The Ejection Fraction is 30%. The left atrium size is normal. The right atrium size is normal. The aortic valve is mildly calcified but opens well. Doppler and Color Flow revealed trace mitral regurgitation. Doppler and Color Flow revealed trace tricuspid regurgitation. The PA pressure was estimated at 22 mmHg. The pulmonary valve is normal in structure and function. There is no evidence of significant pericardial effusion. KIM AHUJA MD Apr 17, 2016 16:03
[2016-04-17] MEDS ORDERED: MAGNESIUM SULFATE 2GM 50 ML IV PRN (16:15)
[2016-04-17] MEDS ORDERED: IV NORMAL SALINE 1000ML BAG 1,000 ML IV SCH (16:15)
[2016-04-17 16:45] LABS: % SAT IRON 24 % (15-34); IRON,SERUM 77 ug/dL (65-175)
[2016-04-17 17:01] LABS: URIC ACID 8.6 mg/dL (3.5-7.2)
[2016-04-17] MEDS: DOBUTAMINE 500MG/250ML PREMIX 250 ML IV PRN (17:03)
[2016-04-17] MEDS: CARVEDILOL 6.25 MG TABLET PO SCH (17:51)
[2016-04-17 19:31] LABS: BARBITURATES NEG (NEG); BENZODIAZEPINES NEG (NEG); CANNABINOIDS NEG (NEG); COCAINE POS (NEG); METHADONE NEG (NEG); OPIATES NEG (NEG); PHENCYCLIDINE NEG (NEG)
[2016-04-17 19:33] LABS: ETHANOL, URINE NEG (NEG)
[2016-04-17] MEDS: GABAPENTIN 100 MG CAPSULE. PO SCH (22:10)
[2016-04-17] MEDS: NORTRIPTYLINE 10 MG CAPSULE PO SCH (22:11)
[2016-04-17] MEDS: INSULIN DETEMIR 300 UNITS/3 ML INSULN.PEN. SQ SCH (22:16)
[2016-04-18] VITALS (7 sets, daily range): BP systolic 115–142; BP diastolic 59–78
[2016-04-18] MEDS: ALBUTEROL SULFATE 2.5 MG/3 ML NEBU. NEB SCH ×4 (06:03→19:26)
[2016-04-18 06:42] LABS: ALBUMIN 3.4 g/dL (3.4-5.0); CREATININE 1.4 mg/dL (0.7-1.3); GFR 65.2; POTASSIUM 3.5 mmol/L (3.5-5.1)
[2016-04-18] MEDS: INSULIN ASPART 300 UNITS/3 ML INSULN.PEN SQ SCH ×6 (08:00→17:00)
--- NOTE | 2016-04-18 08:46 | RAD ---
Renal sonography Indications: Chronic kidney disease. Acute renal failure. CHF. Increased weight. Findings: The longitudinal and AP and transverse dimensions of the right kidney are 13.7 cm and 5.6 cm and 5.4 cm respectively. Small cortical cyst of the lateral mid aspect of the right kidney is seen measuring 8 mm. The longitudinal and AP and transverse dimensions of the left kidney are 11.9 cm and 5.3 cm and 6.5 cm respectively. No hydronephrosis or renal mass or perinephric fluid collection is seen on either side. Bilateral ureteral jets are seen within the urinary bladder. No intraluminal echodensities or masses of the urinary bladder are seen. Prior to voiding, the urinary bladder volume is 373 cc. After voiding, the volume is 255 cc. IMPRESSION: No hydronephrosis. Significant postvoid urinary bladder residual volume.
[2016-04-18] MEDS: GLIPIZIDE 5 MG TABLET PO SCH ×2 (08:49→17:33)
[2016-04-18] MEDS: MULTIVITAMIN with MINERAL TABLET. PO SCH (08:49)
[2016-04-18] MEDS: ASPIRIN 325 MG TABLET PO SCH (08:49)
[2016-04-18] MEDS: DIGOXIN 125 MCG TABLET PO SCH (08:50)
[2016-04-18] MEDS: DULOXETINE HCL 30 MG CAPSULE.DR. PO SCH (08:50)
[2016-04-18] MEDS: SACUBITRIL/VALSARTAN 49/51MG TABLET. PO SCH ×2 (08:50→20:38)
[2016-04-18] MEDS: METFORMIN XR 500 MG TAB.ER.24H PO SCH (08:51)
[2016-04-18] MEDS: CARVEDILOL 6.25 MG TABLET PO SCH ×2 (08:51→17:33)
[2016-04-18] MEDS ORDERED: POTASSIUM CHLORIDE 20 MEQ TABLET.ER. PO ONE (10:00)
--- NOTE | 2016-04-18 10:08 | PDOC ---
SUBJECTIVE ROS JANAK Doing better today still somewhat Dz but better then yest, UO has picked up too CVS: no Orthopnea, no CP RESP: no SOB, no SANCHEZ GI: no Nausea, no Vomiting : no Dysuria, no Urgency OBJECTIVE Vital Signs Vital Signs Date Time Temp Pulse Resp B/P Pulse Ox O2 Delivery O2 Flow Rate FiO2 04/18/16 08:51 85 129/70 04/18/16 07:58 Room Air 04/18/16 07:15 97.8 12 95 97.8 I & 0 Intake and Output 04/18/16 07:00 Intake Total 2220 ml Output Total 1025 ml Balance 1195 ml Intake Oral 1150 ml IV Total 1070 ml Output Urine Total 1025 ml # Voids 1 # Bowel Movements 1 PHYSICAL EXAM Physical Exam General Appearance: Awake Alert Oriented x 3 In no Distress Eyes: VIsion Unchanged Conjunctiva Normal EN: No EN Drainage Mucous Memb. moist Neck: no JVD min JVP Supple no Thyromegaly CVS: S1 S2 soft Murmur No Gallop No Rub no Edema Resp: no Rales no Rhonchi no Acc. Muscle use GI: BAS +ve NO Bruit Non Tender Non Distended : no CVA tenderness; no Suprapubic Tenderness ASSESSMENT AND PLAN: JANAK due to NSAID use along with Diuretics, Hypoperfusion from low BP and CmyOpathy. (VMN) Current FLuid and E-lyte status does not necessitate emergent need for Dialysis. Will re-evaluate in am Ch Systolic CHF - with signs of VOl depletion WHICH Improved with 1L NS and UO picking up. Intravascular VOL Depeltion (still somewhat Dz, not Orthostatic as reported) - watch off of IVF and NSAIDs now that Hypotension is better too Anemia: Iron is OK ; May need Epogen Transfuse as needed. Min ^ed Lactate - recehck today. Suspect due to Vol depeltion in setting of + Cocaine use HypoTN: hold ? Current BP meds - defer to Dr Matson Discussed Plan of Care and prognosis etc. at length with familya COMMENT/RELEVANT DATA Meds Current Medications Medications (Trade) Dose Ordered Sig/Chaitanya Start Time Stop Time Status Last Admin Dose Admin Albuterol Sulfate (Ventolin Neb Soln) 2.5 mg RTQID 04/15/16 20:00 04/18/16 06:03 2.5 MG Alprazolam (Xanax) 0.5 mg PRN Q8HRS PRN 04/15/16 17:30 Aspirin (Meena Aspirin) 325 mg DAILY 04/16/16 09:00 04/18/16 08:49 325 MG Carvedilol (Coreg) 6.25 mg BIDWMEALS 04/17/16 17:30 04/18/16 08:51 6.25 MG Dextrose 12.5 gm PRN Q15MIN PRN 04/15/16 17:15 Digoxin (Lanoxin) 125 mcg DAILY 04/16/16 09:00 04/18/16 08:50 125 MCG Dobutamine HCl/ Dextrose 250 ml @ 0 mls/hr CONT PRN 04/15/16 17:15 04/17/16 17:03 8.4 MLS/HR Duloxetine HCl (Cymbalta) 60 mg DAILY 04/16/16 09:00 04/18/16 08:50 60 MG Furosemide/Sodium Chloride (Lasix Drip/Iv Sodium Chloride 0.9% 100ml) 100 ml @ 0 mls/hr CONT PRN 04/15/16 17:15 04/17/16 13:09 DC 04/17/16 00:32 10 MLS/HR Gabapentin (Neurontin) 100 mg HS 04/15/16 21:00 04/17/16 22:10 100 MG Glipizide (Glucotrol) 5 mg BIDBFRMEAL 04/15/16 18:00 04/18/16 08:49 5 MG Insulin Aspart (Novolog) 15 units TIDBFRMEAL 04/16/16 18:00 04/18/16 08:54 15 UNITS Insulin Aspart 15 units 15 units 1X ONCE 04/15/16 18:15 04/15/16 18:16 DC 04/15/16 18:16 15 UNITS Insulin Detemir (Levemir) 30 units QHS 04/15/16 21:00 04/17/16 22:16 30 UNITS Magnesium Sulfate/ Dextrose 50 ml @ 25 mls/hr PRN DAILY PRN 04/17/16 16:15 Metformin HCl (Glucophage Xr) 750 mg DAILYWBKFT 04/16/16 08:00 04/18/16 08:51 750 MG Multivitamins/ Calcium (Thera M Plus) 1 tab DAILY 04/16/16 09:00 04/18/16 08:49 1 TAB Naproxen (Naprosyn) 500 mg BID 04/15/16 21:00 04/17/16 16:20 DC 04/17/16 08:17 500 MG Nortriptyline HCl (Pamelor) 10 mg QHS 04/15/16 21:00 04/17/16 22:11 10 MG Potassium Chloride (Klor-Con) 10 meq DAILYWBKFT 04/16/16 08:00 04/17/16 16:20 DC 04/17/16 08:18 10 MEQ Sacubitril/ Valsartan (Entresto 49 Mg-51 Mg) 1 tab BID 04/15/16 21:00 04/18/16 08:50 1 TAB Sodium Chloride (Iv Sodium Chloride 0.9% 1000ml Bag) 1,000 ml @ 75 mls/hr [id number] 04/17/16 16:15 04/18/16 05:34 DC 04/17/16 17:03 75 MLS/HR Lab Laboratory Tests Test 04/17/16 10:07 04/17/16 12:49 04/17/16 16:35 04/17/16 19:00 Glucose (Fingerstick) 124mg/dL (70-99) 100mg/dL (70-99) 140mg/dL (70-99) Lactic Acid Level 2.5mmol/L (0.4-2.0) Urine Opiates Screen Neg (NEG) Urine Methadone Screen Neg (NEG) Urine Barbiturates Neg (NEG) Urine Phencyclidine Screen Neg (NEG) Urine Amphetamine/Methamphetamine Neg (NEG) Urine Benzodiazepines Screen Neg (NEG) Urine Cocaine Screen Pos (NEG) Urine Cannabinoids Screen Neg (NEG) Urine Ethyl Alcohol Neg (NEG) Test 04/17/16 21:24 04/18/16 05:53 04/18/16 08:04 Glucose (Fingerstick) 308mg/dL (70-99) 198mg/dL (70-99) Hemoglobin 11.5g/dL (13.0-17.5) Sodium Level 137mmol/L (136-145) Potassium Level 3.5mmol/L (3.5-5.1) Chloride Level 99mmol/L (98-107) Carbon Dioxide Level 29mmol/L (21-32) Anion Gap 9 (6-14) Blood Urea Nitrogen 51mg/dL (8-26) Creatinine 1.4mg/dL (0.7-1.3) Estimated GFR (Cockcroft-Gault) 65.2 Glucose Level 214mg/dL (70-99) Calcium Level 9.0mg/dL (8.5-10.1) Phosphorus Level 4.0mg/dL (2.6-4.7) Magnesium Level 2.0mg/dL (1.8-2.4) Albumin 3.4g/dL (3.4-5.0) KIM AHUJA MD Apr 18, 2016 10:08
--- NOTE | 2016-04-18 13:24 | PDOC ---
PROGRESS NOTES Subjective Subjective Patient reports he has been feeling well today and denies any dizziness or lightheadedness at this time. He further denies any chest pain or shortness of breath. No new complaints. Objective Objective Vital Signs Date Time Temp Pulse Resp B/P Pulse Ox O2 Delivery O2 Flow Rate FiO2 04/18/16 11:44 Room Air 04/18/16 11:20 85 12 139/78 04/18/16 07:15 97.8 95 97.8 04/16/16 02:20 96.0 Intake and Output 04/18/16 07:00 Intake Total 2220 ml Output Total 1025 ml Balance 1195 ml Intake Oral 1150 ml IV Total 1070 ml Output Urine Total 1025 ml # Voids 1 # Bowel Movements 1 Physical Exam Abdomen: Normal bowel sounds Heart: Regular rate, Normal S1, Normal S2, No murmurs Extremities: No clubbing, No cyanosis, Other (mild edema of lower extremities improving) General: Alert, Oriented X3, Cooperative, No acute distress HEENT: Atraumatic Lungs: Clear to auscultation Neuro: Other (no gross focal deficits) Assessment Assessment Patient presented with weakness and shortness of breath secondary to acute on chronic CHF secondary to cardiomyopathy possible worsened by cocaine use. He clinically improved with diuresis and dobutamine but developed JANAK with current BUN of 51 and Creatinine of 1.4. The lasix and dobutamine have been discontinued. The patient was also hypotensive over the past 24 hours with evidence of volume depletion and responded well to 1 liter of fluids. Plan Plan of Care Acute on Chronic CHF -Responded well to diuresis and dobutamine, have been discontinued, will continue with current medications without changes JANAK -Nephrology on board, recommendations appreciated Diabetes -Continue with current therapy. Hypotension -Resolved, will continue to monitor. Metabolic alkalosis -Resolved, will continue to monitor. Home in AM if okay with Nephrology Comment Review of Relevant I have reviewed the following items rc (where applicable) has been applied. Labs Laboratory Tests Test 04/16/16 16:27 04/16/16 21:27 04/17/16 04:21 04/17/16 07:57 Glucose (Fingerstick) 315mg/dL (70-99) 147mg/dL (70-99) 124mg/dL (70-99) Reticulocyte Count (auto) 3.3% (0.5-2.5) Sodium Level 141mmol/L (136-145) Potassium Level 3.7mmol/L (3.5-5.1) Chloride Level 100mmol/L (98-107) Carbon Dioxide Level 33mmol/L (21-32) Anion Gap 8 (6-14) Blood Urea Nitrogen 39mg/dL (8-26) Creatinine 1.5mg/dL (0.7-1.3) Estimated GFR (Cockcroft-Gault) 60.2 Glucose Level 97mg/dL (70-99) Uric Acid 8.6mg/dL (3.5-7.2) Calcium Level 9.6mg/dL (8.5-10.1) Iron Level 77ug/dL (65-175) Total Iron Binding Capacity 320ug/dL (250-450) Iron Saturation 24% (15-34) Ferritin 496ng/mL (26-388) Creatine Kinase 127U/L (39-308) Vitamin B12 Level 517pg/mL (211-946) Test 04/17/16 10:07 04/17/16 12:49 04/17/16 16:35 04/17/16 19:00 Glucose (Fingerstick) 124mg/dL (70-99) 100mg/dL (70-99) 140mg/dL (70-99) Lactic Acid Level 2.5mmol/L (0.4-2.0) Urine Opiates Screen Neg (NEG) Urine Methadone Screen Neg (NEG) Urine Barbiturates Neg (NEG) Urine Phencyclidine Screen Neg (NEG) Urine Amphetamine/Methamphetamine Neg (NEG) Urine Benzodiazepines Screen Neg (NEG) Urine Cocaine Screen Pos (NEG) Urine Cannabinoids Screen Neg (NEG) Urine Ethyl Alcohol Neg (NEG) Test 04/17/16 21:24 04/18/16 05:53 04/18/16 08:04 04/18/16 11:00 Glucose (Fingerstick) 308mg/dL (70-99) 198mg/dL (70-99) Hemoglobin 11.5g/dL (13.0-17.5) Sodium Level 137mmol/L (136-145) Potassium Level 3.5mmol/L (3.5-5.1) Chloride Level 99mmol/L (98-107) Carbon Dioxide Level 29mmol/L (21-32) Anion Gap 9 (6-14) Blood Urea Nitrogen 51mg/dL (8-26) Creatinine 1.4mg/dL (0.7-1.3) Estimated GFR (Cockcroft-Gault) 65.2 Glucose Level 214mg/dL (70-99) Calcium Level 9.0mg/dL (8.5-10.1) Phosphorus Level 4.0mg/dL (2.6-4.7) Magnesium Level 2.0mg/dL (1.8-2.4) Albumin 3.4g/dL (3.4-5.0) Lactic Acid Level 1.0mmol/L (0.4-2.0) Test 04/18/16 11:18 Glucose (Fingerstick) 124mg/dL (70-99) Laboratory Tests Test 04/17/16 16:35 04/17/16 19:00 04/17/16 21:24 04/18/16 05:53 Glucose (Fingerstick) 140mg/dL (70-99) 308mg/dL (70-99) Lactic Acid Level 2.5mmol/L (0.4-2.0) Urine Opiates Screen Neg (NEG) Urine Methadone Screen Neg (NEG) Urine Barbiturates Neg (NEG) Urine Phencyclidine Screen Neg (NEG) Urine Amphetamine/Methamphetamine Neg (NEG) Urine Benzodiazepines Screen Neg (NEG) Urine Cocaine Screen Pos (NEG) Urine Cannabinoids Screen Neg (NEG) Urine Ethyl Alcohol Neg (NEG) Hemoglobin 11.5g/dL (13.0-17.5) Sodium Level 137mmol/L (136-145) Potassium Level 3.5mmol/L (3.5-5.1) Chloride Level 99mmol/L (98-107) Carbon Dioxide Level 29mmol/L (21-32) Anion Gap 9 (6-14) Blood Urea Nitrogen 51mg/dL (8-26) Creatinine 1.4mg/dL (0.7-1.3) Estimated GFR (Cockcroft-Gault) 65.2 Glucose Level 214mg/dL (70-99) Calcium Level 9.0mg/dL (8.5-10.1) Phosphorus Level 4.0mg/dL (2.6-4.7) Magnesium Level 2.0mg/dL (1.8-2.4) Albumin 3.4g/dL (3.4-5.0) Test 04/18/16 08:04 04/18/16 11:00 04/18/16 11:18 Glucose (Fingerstick) 198mg/dL (70-99) 124mg/dL (70-99) Lactic Acid Level 1.0mmol/L (0.4-2.0) Medications Current Medications Dobutamine HCl/ Dextrose 250 ml @ 0 mls/hr CONT PRN IV SEE I/O RECORD Last administered on 04/17/16 17:03; Start 04/15/16 at 17:15 Furosemide/Sodium Chloride (Lasix Drip/Iv Sodium Chloride 0.9% 100ml) 100 ml @ 0 mls/hr CONT PRN IV SEE I/O RECORD Last administered on 04/17/16 00:32; Start 04/15/16 at 17:15; Stop 04/17/16 at 13:09; Status DC Insulin Detemir (Levemir) 30 units QHS SQ Last administered on 04/17/16 22:16; Start 04/15/16 at 21:00 Insulin Aspart (Novolog) 0-5 UNITS TIDWMEALS SQ Last administered on 04/16/16 17:00; Start 04/16/16 at 08:00 Dextrose 12.5 gm PRN Q15MIN PRN IV SEE COMMENTS; Start 04/15/16 at 17:15 Alprazolam (Xanax) 0.5 mg PRN Q8HRS PRN PO ANXIETY / AGITATION; Start 04/15/16 at 17:30 Aspirin (Meena Aspirin) 325 mg DAILY PO Last administered on 04/18/16 08:49; Start 04/16/16 at 09:00 Carvedilol (Coreg) 12.5 mg BIDWMEALS PO Last administered on 04/17/16 08:22; Start 04/16/16 at 08:00; Stop 04/17/16 at 17:25; Status DC Digoxin (Lanoxin) 125 mcg DAILY PO Last administered on 04/18/16 08:50; Start 04/16/16 at 09:00 Gabapentin (Neurontin) 100 mg HS PO Last administered on 04/17/16 22:10; Start 04/15/16 at 21:00 Glipizide (Glucotrol) 5 mg BIDBFRMEAL PO Last administered on 04/18/16 08:49; Start 04/15/16 at 18:00 Naproxen (Naprosyn) 500 mg BID PO Last administered on 04/17/16 08:17; Start at 21:00; Stop 04/17/16 at 16:20; Status DC Nortriptyline HCl (Pamelor) 10 mg QHS PO Last administered on 04/17/16 22:11; Start 04/15/16 at 21:00 Sacubitril/ Valsartan (Entresto 49 Mg-51 Mg) 1 tab BID PO Last administered on 04/18/16 08:50; Start 04/15/16 at 21:00 Duloxetine HCl (Cymbalta) 60 mg DAILY PO Last administered on 04/18/16 08:50; Start 04/16/16 at 09:00 Insulin Aspart (Novolog) 15 units TIDBFRMEAL SQ Last administered on 04/18/16 12:37; Start 04/16/16 at 18:00 Metformin HCl (Glucophage Xr) 750 mg DAILYWBKFT PO Last administered on 08:51; Start 04/16/16 at 08:00 Multivitamins/ Calcium (Thera M Plus) 1 tab DAILY PO Last administered on 08:49; Start 04/16/16 at 09:00 Potassium Chloride (Klor-Con) 10 meq DAILYWBKFT PO Last administered on 08:18; Start 04/16/16 at 08:00; Stop 04/17/16 at 16:20; Status DC Albuterol Sulfate (Ventolin Neb Soln) 2.5 mg RTQID NEB Last administered on 04/18 11:43; Start 04/15/16 at 20:00 Insulin Aspart 15 units 15 units 1X ONCE SQ Last administered on 04/15/16 18: 16; Start 04/15/16 at 18:15; Stop 04/15/16 at 18:16; Status DC Magnesium Sulfate/ Dextrose 50 ml @ 25 mls/hr PRN DAILY PRN IV for Mag < 1.7 on am labs; Start 04/17/16 at 16:15 Sodium Chloride (Iv Sodium Chloride 0.9% 1000ml Bag) 1,000 ml @ 75 mls/hr [id number] IV Last administered on 04/17/16 17:03; Start 04/17/16 at 16:15; Stop at 05:34; Status DC Carvedilol (Coreg) 6.25 mg BIDWMEALS PO Last administered on 04/18/16 08:51; Start 04/17/16 at 17:30 Potassium Chloride (Klor-Con) 40 meq 1X ONCE PO Last administered on 04/18/16 11:20; Start 04/18/16 at 10:00; Stop 04/18/16 at 10:01; Status DC Active Scripts Active Reported Xanax (Alprazolam) 0.5 Mg Tablet 0.5 Mg PO PRN Q8HRS PRN Naproxen 500 Mg Tablet 500 Mg PO BID Entresto 49 mg-51 mg Tablet (Sacubitril/Valsartan) 1 Each Tablet 1 Each PO BID Multi-Vitamin Daily (Multivitamin) 1 Each Tablet 1 Each PO DAILY Potassium Chloride 10 Meq Capsule.er 10 Meq PO DAILY Carvedilol 12.5 Mg Tablet 12.5 Mg PO BIDWMEALS Digoxin 125 Mcg Tablet 125 Mcg PO DAILY Spironolactone 25 Mg Tablet 25 Mg PO BID Aspirin 325 Mg Tablet 325 Mg PO DAILY Lasix (Furosemide) 40 Mg Tablet 40 Mg PO DAILY Cymbalta (Duloxetine Hcl) 60 Mg Capsule.dr 60 Mg PO DAILY Glipizide 5 Mg Tablet 5 Mg PO BID Ventolin Hfa (Albuterol Sulfate) 8 Gm Hfa.aer.ad 8 Gm IH Glucophage Xr (Metformin Hcl) 750 Mg Tab.er.24h 750 Mg PO DAILYWBKFT Nortriptyline Hcl 10 Mg Capsule 2 Cap PO QHS Neurontin (Gabapentin) 100 Mg Capsule 100 Mg PO HS Humalog (Insulin Lispro) 100 Unit/1 Ml Cartridge 15 Unit SQ TIDBFRMEAL Lantus Solostar (Insulin Glargine,Hum.rec.anlog) 100 Unit/1 Ml Insuln.pen 30 Unit SQ QHS Vitals/I & O Vital Sign - Last 24 Hours 04/17/16 04/17/16 04/17/16 04/17/16 13:30 15:00 15:16 15:30 Temp 97.7 97.7 Pulse 94 Resp 17 B/P 110/65 98/55 89/50 89/50 Pulse Ox 99 O2 Delivery Room Air 04/17/16 04/17/16 04/17/16 04/17/16 15:45 16:13 16:15 16:45 B/P 93/52 96/57 109/63 O2 Delivery Room Air 04/17/16 04/17/16 04/17/16 04/17/16 17:15 17:45 17:51 19:00 Pulse 100 92 B/P 99/57 104/55 104/55 110/64 O2 Delivery Room Air 04/17/16 04/17/16 04/17/16 04/17/16 19:16 19:45 20:30 20:40 Temp 97.6 97.6 Pulse 100 90 Resp 20 B/P 110/61 114/57 Pulse Ox 93 O2 Delivery Room Air Room Air Room Air 04/17/16 04/17/16 04/17/16 04/17/16 21:00 22:00 22:11 23:22 Temp 98.0 98.0 Pulse 86 86 86 89 Resp 18 18 B/P 122/76 125/71 125/71 119/63 Pulse Ox 93 O2 Delivery Room Air 04/17/16 04/17/16 04/18/16 04/18/16 23:25 23:27 00:00 01:00 Pulse 96 100 84 86 B/P 109/55 97/56 127/59 129/71 04/18/16 04/18/16 04/18/16 04/18/16 06:03 07:15 07:58 08:50 Temp 97.8 97.8 Pulse 85 85 Resp 12 B/P 129/70 129/70 Pulse Ox 95 O2 Delivery Room Air Room Air Room Air 04/18/16 04/18/16 04/18/16 04/18/16 08:50 08:51 11:20 11:44 Pulse 85 85 85 Resp 12 B/P 129/70 129/70 139/78 O2 Delivery Room Air Room Air Intake and Output 04/17/16 04/17/16 04/18/16 15:00 23:00 07:00 Intake Total 1150 ml 1070 ml Output Total 450 ml 575 ml Balance -450 ml 1150 ml 495 ml CAIN GATICA MD Apr 18, 2016 13:24
[2016-04-18 16:06] LABS: BILIRUBIN,URINE NEGATIVE (NEG); GLUCOSE,URINE NEGATIVE (NEG); NITRITE,URINE NEGATIVE (NEG); PROTEIN,URINE NEGATIVE (NEG-TRACE)
[2016-04-18 16:25] LABS: BACTERIA,URINE 0 /HPF (0-FEW); RBC,URINE 0 /HPF (0-2); WBC,URINE 0 /HPF (0-4)
--- NOTE | 2016-04-18 17:34 | CONS ---
DATE OF CONSULTATION: 04/17/2016 PRIMARY PHYSICIAN: Dr. Tolliver. REASON FOR CONSULTATION: Elevated creatinine. HISTORY OF PRESENT ILLNESS: The patient is a 31-year-old gentleman with advanced nonischemic cardiomyopathy with an underlying diabetes, hypertension and previous substance abuse related problems, he developed increasing shortness of breath, edema and 20-pound weight gain as reported to Dr. Tolliver. He failed outpatient therapy for the same and was admitted to the hospital for further evaluation. He thinks he was diagnosed with pericarditis. Initially, he told me that was in December, now he tells me it was as recently as March. He claims he needs his to help him remember things. He has been on naproxen for the same. He was also on diuretics as an outpatient, besides being on Entresto also. In this setting, his creatinine has gone up from 1.2 at baseline up to 1.5 today and we were asked to see him for the same. For rest of the details, please see electronic renal consult note. KIM AHUJA MD DR: ANANTH/angie JOB#: [id number] / [id number]
[2016-04-18] MEDS: NORTRIPTYLINE 10 MG CAPSULE PO SCH (20:37)
[2016-04-18] MEDS: GABAPENTIN 100 MG CAPSULE. PO SCH (20:37)
[2016-04-18] MEDS: INSULIN DETEMIR 300 UNITS/3 ML INSULN.PEN. SQ SCH (20:41)
[2016-04-19 03:00] VITALS: BP 155/76
[2016-04-19 07:00] VITALS: BP 141/81
[2016-04-19 07:08] LABS: ALBUMIN 3.4 g/dL (3.4-5.0); CALCIUM 9.1 mg/dL (8.5-10.1); CREATININE 0.9 mg/dL (0.7-1.3); GFR 108.5; PHOSPHORUS 2.6 mg/dL (2.6-4.7); POTASSIUM 4.3 mmol/L (3.5-5.1)
[2016-04-19] MEDS: INSULIN ASPART 300 UNITS/3 ML INSULN.PEN SQ SCH ×4 (07:30→13:24)
[2016-04-19] MEDS: ALBUTEROL SULFATE 2.5 MG/3 ML NEBU. NEB SCH ×2 (08:14→11:52)
[2016-04-19] MEDS: DULOXETINE HCL 30 MG CAPSULE.DR. PO SCH (08:17)
[2016-04-19] MEDS: GLIPIZIDE 5 MG TABLET PO SCH (08:17)
[2016-04-19] MEDS: METFORMIN XR 500 MG TAB.ER.24H PO SCH (08:17)
[2016-04-19] MEDS: CARVEDILOL 6.25 MG TABLET PO SCH (08:17)
[2016-04-19] MEDS: ASPIRIN 325 MG TABLET PO SCH (08:18)
[2016-04-19] MEDS: DIGOXIN 125 MCG TABLET PO SCH (08:18)
[2016-04-19] MEDS: MULTIVITAMIN with MINERAL TABLET. PO SCH (08:18)
[2016-04-19] MEDS: SACUBITRIL/VALSARTAN 49/51MG TABLET. PO SCH (08:18)
--- NOTE | 2016-04-19 09:50 | PDOC3 ---
Discharge Summary* Date of Admission: Apr 15, 2016 Date of Discharge: Apr 19, 2016 Admitting Diagnosis Acute on chronic congestive heart failure Final Diagnosis Acute on chronic congestive heart failure. CONSULTS Nephrology - Dr. Azar Procedures None Brief Hospital Course Mr. Zamudio is a 51 old male who presented with progressive shortness of breath due to acute exacerbation of congestive heart failure secondary to chronic cardiomyopathy. He was started on dobutamine and lasix drip which improved his symptoms. He developed metabolic acidosis and an acute kidney injury at which point nephrology was consulted. His lasix and dobutamine were discontinued and the patient was given IV fluids which helped improve his renal function. The patient was stable for discharge to home on 04/19/16. Disposition/Orders: D/C to Home CONDITION AT DISCHARGE: Improved Diet: other (Low sodium) Scheduled Aspirin (Aspirin) 325 MG PO DAILY (Reported) Carvedilol (Carvedilol) 12.5 MG PO BIDWMEALS (Reported) Digoxin (Digoxin) 125 MCG PO DAILY (Reported) Duloxetine Hcl (Cymbalta) 60 MG PO DAILY (Reported) Furosemide (Lasix) 40 MG PO DAILY (Reported) Gabapentin (Neurontin) 100 MG PO HS (Reported) Glipizide (Glipizide) 5 MG PO BID (Reported) Insulin Glargine,Hum.rec.anlog (Lantus Solostar) 30 UNIT SQ QHS (Reported) Insulin Lispro (Humalog) 15 UNIT SQ TIDBFRMEAL (Reported) Metformin Hcl (Glucophage Xr) 750 MG PO DAILYWBKFT (Reported) Multivitamin (Multi-Vitamin Daily) 1 EACH PO DAILY (Reported) Naproxen (Naproxen) 500 MG PO BID (Reported) Nortriptyline Hcl (Nortriptyline Hcl) 2 CAP PO QHS (Reported) Potassium Chloride (Potassium Chloride) 10 MEQ PO DAILY (Reported) Sacubitril/Valsartan (Entresto 49 mg-51 mg Tablet) 1 EACH PO BID (Reported) Spironolactone (Spironolactone) 25 MG PO BID (Reported) Scheduled PRN Alprazolam (Xanax) 0.5 MG PO PRN Q8HRS PRN PRN ANXIETY / AGITATION (Reported) Miscellaneous Medications Albuterol Sulfate (Ventolin Hfa) 8 GM IH (Reported) Discontinued Medications Glipizide (Glipizide) 0.5 TAB PO BID (Reported) FOLLOW UP APPOINTMENT: Please follow up in 3 weeks Time Spent Total time spent with patient 60 minutes for coordination of care, counseling, and education. CAIN GATICA MD Apr 19, 2016 09:50
[2016-04-19 11:00] VITALS: BP 135/76
--- NOTE | 2016-04-19 13:43 | PDOC ---
SUBJECTIVE ROS JANAK Doing well, no Dziness OBJECTIVE Vital Signs Vital Signs Date Time Temp Pulse Resp B/P Pulse Ox O2 Delivery O2 Flow Rate FiO2 04/19/16 11:00 98.2 83 18 135/76 98 Room Air 98.2 I & 0 Intake and Output 04/19/16 07:00 Intake Total 750 ml Output Total 1875 ml Balance -1125 ml Intake Oral 750 ml Output Urine Total 1875 ml # Voids 1 PHYSICAL EXAM Physical Exam General Appearance: Awake: Alert Oriented x 3 Neck: No JVD or JVP Chest: CTA Johnnie Heart: S1 S2 Abdomen - Soft NTND Extremities - No Edema DIAGNOSIS/ASSESSMENT Assessment & Plan Janak due to NSAIDs and VMn from diuretics - better now, Dz ness resolved Will sign off Problems: COMMENT/RELEVANT DATA Meds Current Medications Medications (Trade) Dose Ordered Sig/Chaitanya Start Time Stop Time Status Last Admin Dose Admin Albuterol Sulfate (Ventolin Neb Soln) 2.5 mg RTQID 04/15/16 20:00 04/19/16 08:14 2.5 MG Alprazolam (Xanax) 0.5 mg PRN Q8HRS PRN 04/15/16 17:30 Aspirin (Meena Aspirin) 325 mg DAILY 04/16/16 09:00 04/19/16 08:18 325 MG Carvedilol (Coreg) 6.25 mg BIDWMEALS 04/17/16 17:30 04/19/16 08:17 6.25 MG Dextrose 12.5 gm PRN Q15MIN PRN 04/15/16 17:15 Digoxin (Lanoxin) 125 mcg DAILY 04/16/16 09:00 04/19/16 08:18 125 MCG Dobutamine HCl/ Dextrose 250 ml @ 0 mls/hr CONT PRN 04/15/16 17:15 04/17/16 17:03 8.4 MLS/HR Duloxetine HCl (Cymbalta) 60 mg DAILY 04/16/16 09:00 04/19/16 08:17 60 MG Furosemide/Sodium Chloride (Lasix Drip/Iv Sodium Chloride 0.9% 100ml) 100 ml @ 0 mls/hr CONT PRN 04/15/16 17:15 04/17/16 13:09 DC 04/17/16 00:32 10 MLS/HR Gabapentin (Neurontin) 100 mg HS 04/15/16 21:00 04/18/16 20:37 100 MG Glipizide (Glucotrol) 5 mg BIDBFRMEAL 04/15/16 18:00 04/19/16 08:17 5 MG Insulin Aspart (Novolog) 15 units TIDBFRMEAL 04/16/16 18:00 04/19/16 13:24 15 UNITS Insulin Aspart 15 units 15 units 1X ONCE 04/15/16 18:15 04/15/16 18:16 DC 04/15/16 18:16 15 UNITS Insulin Detemir (Levemir) 30 units QHS 04/15/16 21:00 04/18/16 20:41 30 UNITS Magnesium Sulfate/ Dextrose 50 ml @ 25 mls/hr PRN DAILY PRN 04/17/16 16:15 Metformin HCl (Glucophage Xr) 750 mg DAILYWBKFT 04/16/16 08:00 04/19/16 08:17 750 MG Multivitamins/ Calcium (Thera M Plus) 1 tab DAILY 04/16/16 09:00 04/19/16 08:18 1 TAB Naproxen (Naprosyn) 500 mg BID 04/15/16 21:00 04/17/16 16:20 DC 04/17/16 08:17 500 MG Nortriptyline HCl (Pamelor) 10 mg QHS 04/15/16 21:00 04/18/16 20:37 10 MG Potassium Chloride (Klor-Con) 40 meq 1X ONCE 04/18/16 10:00 04/18/16 10:01 DC 04/18/16 11:20 40 MEQ Sacubitril/ Valsartan (Entresto 49 Mg-51 Mg) 1 tab BID 04/15/16 21:00 04/19/16 08:18 1 TAB Sodium Chloride (Iv Sodium Chloride 0.9% 1000ml Bag) 1,000 ml @ 75 mls/hr [id number] 04/17/16 16:15 04/18/16 05:34 DC 04/17/16 17:03 75 MLS/HR Lab Laboratory Tests Test 04/18/16 15:26 04/18/16 15:56 04/18/16 15:57 04/18/16 17:28 Glucose (Fingerstick) 58mg/dL (70-99) 93mg/dL (70-99) 96mg/dL (70-99) Urine Collection Type Unknown Urine Color Yellow Urine Clarity Clear Urine pH 7.0 Urine Specific [place] 1.015 Urine Protein Negativemg/dL (NEG-TRACE) Urine Glucose (UA) Negativemg/dL (NEG) Urine Ketones (Stick) Negativemg/dL (NEG) Urine Blood Negative (NEG) Urine Nitrite Negative (NEG) Urine Bilirubin Negative (NEG) Urine Urobilinogen Dipstick 1.0mg/dL (0.2 mg/dL) Urine Leukocyte Esterase Negative (NEG) Urine RBC 0/HPF (0-2) Urine WBC 0/HPF (0-4) Urine Squamous Epithelial Cells None/LPF Urine Bacteria 0/HPF (0-FEW) Test 04/18/16 20:36 04/19/16 06:00 04/19/16 07:34 04/19/16 11:17 Glucose (Fingerstick) 221mg/dL (70-99) 156mg/dL (70-99) 204mg/dL (70-99) Sodium Level 137mmol/L (136-145) Potassium Level 4.3mmol/L (3.5-5.1) Chloride Level 102mmol/L (98-107) Carbon Dioxide Level 30mmol/L (21-32) Anion Gap 5 (6-14) Blood Urea Nitrogen 37mg/dL (8-26) Creatinine 0.9mg/dL (0.7-1.3) Estimated GFR (Cockcroft-Gault) 108.5 Glucose Level 179mg/dL (70-99) Calcium Level 9.1mg/dL (8.5-10.1) Phosphorus Level 2.6mg/dL (2.6-4.7) Magnesium Level 2.2mg/dL (1.8-2.4) Albumin 3.4g/dL (3.4-5.0) KIM AHUJA MD Apr 19, 2016 13:43
[2016-04-19] MEDS ORDERED: CARV6.252 PO (14:26)
[2016-04-19 16:18] LABS: UR PROTEIN RD 33.3 mg/dL (Not Estab.)
== END 2016-04-19 14:48 | disposition home or self-care (01) | DRG 292 ==
LOC: 2 SOUTH 15:21
PROVIDERS: ADMIT Internal Medicine Cardiovascular Disease; ATTEND Internal Medicine Cardiovascular Disease
DX: I11.0 Hypertensive heart disease with heart failure (principal); E87.2 Acidosis; N17.9 Acute kidney failure, unspecified; I50.23 Acute on chronic systolic (congestive) heart failure; I42.9 Cardiomyopathy, unspecified; E11.65 Type 2 diabetes mellitus with hyperglycemia; T39.395A Adverse effect of other nonsteroidal anti-inflammatory drugs [NSAID], initial encounter; I48.91 Unspecified atrial fibrillation; N14.1 Nephropathy induced by other drugs, medicaments and biological substances; K21.9 Gastro-esophageal reflux disease without esophagitis; E78.5 Hyperlipidemia, unspecified; F41.9 Anxiety disorder, unspecified; D50.9 Iron deficiency anemia, unspecified; K58.9 Irritable bowel syndrome, unspecified; Z83.3 Family history of diabetes mellitus; Z87.11 Personal history of peptic ulcer disease; Z79.4 Long term (current) use of insulin; Z79.82 Long term (current) use of aspirin
CPT/HCPCS: 36415; 71020; 76770; 80048; 80053; 80069; 81001; 82550; 82570; 82607; 82728; 82947; 83540; 83550; 83605; 83735; 84156; 84300; 84550; 85018; 85027; 85045; 85610; 85730; 93005; 94250; 94640; 94760; G0481; J1250; J1815; J7030

== ENCOUNTER → 2016-10-10 | Outpatient (CLI) | payer BC ==
[2016-04-17 22:11] VITALS: BP 125/71
[~2016-10-10] MED LIST changes: +ALPR0.5T PO; +ASPI325T8 PO; +CARV12.52 PO; +CARV6.252 PO; +DIGO125T PO; +FURO-68 PO; +GLIP5TAB10 PO; +MULT-246 PO; +NAPR500T3 PO; +POTASSIUM CHLO10 MEQ PO; +SACU1TAB7 PO; +SPIR25TA3 PO
--- NOTE | 2016-10-10 13:15 | KCIC ---
Three-view left shoulder dated 10/10/2016. No comparison available. CLINICAL INDICATION: Left shoulder pain for several months. No known injury. FINDINGS: 3 views left shoulder show normal bony alignment. No displaced fracture. No acute osseous or articular mallet. Mild hypertrophic change of the AC joint. IMPRESSION: No acute radiographic abnormality. Electronically signed by: Ketan Almanza MD (10/10/2016 1:12 PM) [id number]
== END | disposition home or self-care (01) ==
LOC: KCIC 12:20
PROVIDERS: ATTEND Family Medicine
DX: M25.512 Pain in left shoulder (principal)
CPT/HCPCS: 73030

== ENCOUNTER 2017-06-16 10:26 | Day surgery (SDC) | payer OTHER ==
[~2017-06-16 10:26] MED LIST changes: -ALPR0.5T PO; -AMIT25TA PO; -ASPI325T8 PO; -CARV12.52 PO; -CARV3.12 PO; -CARV6.252 PO; -DIGO125T PO; -DULO60CA6 PO; -FURO-68 PO; -GABA-585 PO; -GLIP10TA13 PO; -GLIP5TAB10 PO; -INSU100C SQ; -INSU100I13 SQ; +LIDOCAINE 1% PF 2 ML VIAL. ID; +LIDOCAINE 2% JELLY 6ML IN APPLICATOR. MM; -LOSA25TA4 PO; -METF750T PO; -METF750T2 PO; +MORPHINE SULFATE 4 MG/ML DISP.SYRIN. IV; -MULT-246 PO; -NAPR500T3 PO; -NORT10CA PO; +ONDANSETRON PF 4 MG/2 ML VIAL. IV; -PANT40TA3 PO; -POTASSIUM CHLO10 MEQ PO; +PROCHLORPERAZINE 10 MG/2 ML VIAL. IV; -PROM25TA10 PO; -SACU1TAB7 PO; -SILD100T PO; -SPIR25TA3 PO; -VENTOLIN HFA8 GM IH; +fentaNYL PF VIAL 100 MCG/2 ML VIAL IV
[2017-06-16] MEDS: IV RINGERS,LACTATED 1000ML 1,000 ML IV (10:58)
[2017-06-16] MEDS: PROPARACAINE 0.5% OPHTH SOLUTION 15ML BOTTLE. OS (11:04)
[2017-06-16] MEDS: CYCLOPENTOLATE 1% OPTH SOLUTION 2ML BOTTLE. OS ×3 (11:05→11:15)
[2017-06-16] MEDS: PHENYLEPHRINE 10% OPHTH SOLUTION 5ML BOTTLE. OS ×3 (11:05→11:15)
[2017-06-16] MEDS: INSULIN ASPART 100 UNIT/ML 10ML VIAL. SQ ×2 (11:09→13:30)
[2017-06-16] MEDS: CIPROFLOXACIN 0.3% OPHTH SOLUTION 5ML BOTTLE. OS (11:16)
[2017-06-16] MEDS ORDERED: MIDAZOLAM HCL/PF 2 MG/2 ML VIAL. (11:56)
[2017-06-16] MEDS: LIDOCAINE 2%/EPI 1:100,000 20 ML VIAL. (12:15)
[2017-06-16] MEDS: NEO/POLYMYX/DEXAMETH OPHTH OINTMENT 3.5GM TUBE. (12:35)
[2017-06-16] MEDS: BALANCED SALT IRRIG OPHTH SOLN 15 ML BOTTLE. ×2 (12:35→12:40)
[2017-06-16] MEDS: LIDOCAINE 1% PF 2 ML VIAL. (12:35)
[2017-06-16] MEDS: CHONDROIT-SOD-HYALURONATE KIT. ×2 (12:35→12:49)
[2017-06-16] MEDS: LIDOCAINE 2% JELLY 6ML IN APPLICATOR. (12:35)
[2017-06-16 13:21] LABS: POC GLUCOSE 243 mg/dL (70-99)
[2017-06-20 08:04] LABS: POC GLUCOSE 356 mg/dL (70-99)
[2017-06-20 08:04] LABS: POC GLUCOSE 392 mg/dL (70-99)
== END 2017-06-16 13:47 | disposition home or self-care (01) ==
LOC: SURG 10:26
DX: E11.36 Type 2 diabetes mellitus with diabetic cataract (principal); Z79.4 Long term (current) use of insulin
CPT/HCPCS: 66982; 82962; C1780; J0171; J2250; J3490

== ENCOUNTER → 2017-10-03 | Outpatient (CLI) | payer OTHER ==
[~2017-10-03] MED LIST changes: -LIDOCAINE 1% PF 2 ML VIAL. ID; -LIDOCAINE 2% JELLY 6ML IN APPLICATOR. MM; -MORPHINE SULFATE 4 MG/ML DISP.SYRIN. IV; -ONDANSETRON PF 4 MG/2 ML VIAL. IV; +PERFLUTREN PROTEIN-A MICROSPHR 0.22 MG/ML 3 ML VIAL. IV; -PROCHLORPERAZINE 10 MG/2 ML VIAL. IV; -fentaNYL PF VIAL 100 MCG/2 ML VIAL IV
[2017-10-03] MEDS: PERFLUTREN PROTEIN-A MICROSPHR 0.22 MG/ML 3 ML VIAL. IV (09:10)
== END | disposition home or self-care (01) ==
LOC: ECHO 07:49
DX: I42.8 Other cardiomyopathies (principal)
CPT/HCPCS: C8929; Q9956

== ENCOUNTER 2017-11-07 09:50 | Emergency (ER) | payer OTHER ==
[~2017-11-07] VITALS: Ht 182.9 cm; Wt 114.8 kg
[~2017-11-07 09:50] MED LIST changes: +ALPR0.5T PO; +AMIT25TA PO; +ASPI325T8 PO; +CARV12.52 PO; +CARV3.12 PO; +CARV6.252 PO; +DIGO125T PO; +DULO60CA6 PO; +FURO-68 PO; +GABA-585 PO; +GABA-586 PO; +GLIP10TA13 PO; +GLIP5TAB10 PO; +INSU100C SQ; +INSU100I13 SQ; +LOSA25TA5 PO; +METF750T PO; +METF750T2 PO; +MULT-246 PO; +NAPR-514 PO; +NORT10CA PO; +PANT40TA3 PO; -PERFLUTREN PROTEIN-A MICROSPHR 0.22 MG/ML 3 ML VIAL. IV; +POTA10TA12 PO; +PROM25TA10 PO; +SACU1TAB7 PO; +SILD100T PO; +SPIR25TA5 PO; +TORS20TA2 PO; +VENTOLIN HFA8 GM IH
--- NOTE | 2017-11-07 10:36 | EKG ---
[facility] [address] [place] [address] Test Date: 2017-11-07 Test Time: 09:57:26 Pat Name: MEGHANA URENA Department: Room: Gender: M Program Clerk: : 1965 Requested By: ONEL SCHMIDT Order Number: [id number] Reading MD: Adonis Perez MD Measurements Intervals [place] Rate: 99 P: -161 MA: 144 QRS: 54 QRSD: 82 T: 16 QT: 296 QTc: 384 Interpretive Statements SINUS RHYTHM Electronically Signed On 11-11-2017 11:54:22 CDT by Adonis Perez MD
--- NOTE | 2017-11-07 10:49 | PHYS DOC ---
Past Medical History Past Medical History: Diabetes-Type I, GERD, Other Additional Past Medical Histor: BPH, cardiomyopathy Past Surgical History: Other Additional Past Surgical Histo: ANKLE SURGERY, eye surgery Alcohol Use: Sober Drug Use: None Social History Narrative: past hx of cocaine use Adult General Chief Complaint Chief Complaint: CHEST PAIN HPI HPI Patient is a 52 year old male presenting with chest pain left-sided chest on and off for the last week and will come LIKE A PULSE SENSATION, it will occur on and off last about a minute or so and then go away for 10 minutes or so it is not pleuritic and is not exertional it is worse when he touches the area who is a cardiac nurse wanted him to come into the be evaluated for troponin Of note he had a negative catheter at 2016 clean coronaries and again according to the and negative catheter in 2017 as well. Patient is a history of nonischemic heart myopathy encourage ejection fraction is improved most recent is 40% according to the Review of Systems Review of Systems Constitutional: Denies fever or chills [] Eyes: Denies change in visual acuity, redness, or eye pain [] HENT: Denies nasal congestion or sore throat [] GI: Denies abdominal pain, nausea, vomiting, bloody stools or diarrhea [] Musculoskeletal: Denies back pain or joint pain [] Integument: Denies rash or skin lesions [] Neurologic: Denies headache, focal weakness or sensory changes [] Endocrine: Denies polyuria or polydipsia [] All other systems were reviewed and found to be within normal limits, except as documented in this note. Allergies Allergies Allergies Coded Allergies Type Severity Reaction Last Updated Verified No Known Drug Allergies 06/16/17 No Physical Exam Physical Exam Constitutional: Well developed, well nourished, no acute distress, non-toxic appearance. [] HENT: Normocephalic, atraumatic, bilateral external ears normal, oropharynx moist, no oral exudates, nose normal. [] Eyes: PERRLA, EOMI, conjunctiva normal, no discharge. [] Neck: Normal range of motion, no tenderness, supple, no stridor. [] Cardiovascular:Heart rate regular rhythm, no murmur []no definite murmur Lungs & Thorax: Bilateral breath sounds clear to auscultation []reproducible chest wall tenderness noted Abdomen: Bowel sounds normal, soft, no tenderness, no masses, no pulsatile masses. [] Skin: Warm, dry, no erythema, no rash. [] Back: No tenderness, no CVA tenderness. [] Extremities: No tenderness, no cyanosis, no clubbing, ROM intact, no edema. [] Neurologic: Alert and oriented X 3, normal motor function, normal sensory function, no focal deficits noted. [] Psychologic: Affect normal, judgement normal, mood normal. [] Current Patient Data Vital Signs Vital Signs Date Time Temp Pulse Resp B/P (MAP) Pulse Ox O2 Delivery O2 Flow Rate FiO2 11/07/17 09:56 98.4 90 16 142/67 (92) 96 Room Air 98.4 EKG EKG [] Interpretation Time: Normal sinus rhythm rate of 99 no acute ischemic changes noted this is interpreted by me the time of encounter. Radiology/Procedures Radiology/Procedures [] Course & Med Decision Making Course & Med Decision Making Pertinent Labs and Imaging studies reviewed. (See chart for details) []Atypical chest pain in a 52-year-old male with a history of nonischemic cardiomyopathy I suspect it is musculoskeletal negative catheter actually to negative Last 2 Years Troponin Negative Patient Will Be Discharged in Stable Condition Reassurance Was Provided This Does Not Sound like a PE or Dissection to Me. Dragon Disclaimer Dragon Disclaimer This electronic medical record was generated, in whole or in part, using a voice recognition dictation system. Departure Departure Impression: Primary Impression: Chest pain Disposition: 01 HOME, SELF-CARE Condition: IMPROVED Referrals: SHIRLEY GARCIA MD (PCP) ONEL SCHMIDT MD Nov 07, 2017 10:49
[2017-11-07 10:50] LABS: CALCIUM 10.1 mg/dL (8.5-10.1); CREATININE 1.3 mg/dL (0.7-1.3); GFR 70.7; POTASSIUM 5.1 mmol/L (3.5-5.1)
[2017-11-07 10:51] LABS: BASO % 1 % (0-3); EOS # 0.2 x10^3/uL (0.0-0.7); EOS % 3 % (0-3); HEMATOCRIT 40.6 % (39.0-53.0); HEMOGLOBIN 13.6 g/dL (13.0-17.5); LYMPH # 1.6 x10^3/uL (1.0-4.8); LYMPH % 32 % (24-48); MEAN CORPUSCULAR HEMOGLOBIN 32 pg (25-35); MEAN CORPUSCULAR HGB CONC 33 g/dL (31-37); MEAN CORPUSCULAR VOLUME 96 fL (79-100); MONO # 0.5 x10^3/uL (0.0-1.1); MONO % 10 % (0-9); NEUT # 2.7 x10^3uL (1.8-7.7); NEUT % 54 % (31-73); PLATELET COUNT 229 x10^3/uL (140-400); RED BLOOD COUNT 4.24 x10^6/uL (4.30-5.70); RED CELL DISTRIBUTION WIDTH 12.2 % (11.5-14.5)
--- NOTE | 2017-11-07 10:51 | RAD ---
EXAM: Chest, single view. HISTORY: Chest pain. COMPARISON: None. FINDINGS: A frontal view of the chest is obtained. There is no infiltrate, pleural effusion or pneumothorax. The heart is normal in size. IMPRESSION: No acute pulmonary finding. Electronically signed by: Lynn Chen MD (11/07/2017 10:47 AM) [place] [id number]
[2017-11-07 10:56] LABS: ALBUMIN/GLOBULIN RATIO 1.1 (1.0-1.7); TOTAL BILIRUBIN 0.3 mg/dL (0.2-1.0); TOTAL PROTEIN 7.8 g/dL (6.4-8.2)
[2017-11-07 11:01] LABS: PROTHROMBIN TIME PATIENT 12.5 SEC (11.7-14.0)
[2017-11-07 11:30] VITALS: BP 124/76
== END 2017-11-07 11:41 | disposition home or self-care (01) ==
LOC: ER 09:50
DX: R07.89 Other chest pain (principal); K21.9 Gastro-esophageal reflux disease without esophagitis; E10.8 Type 1 diabetes mellitus with unspecified complications
CPT/HCPCS: 36415; 71045; 80053; 84484; 85025; 85610; 93005; 99285

== ENCOUNTER → 2018-06-02 | Outpatient (CLI) | payer OTHER ==
[~2018-06-02] MED LIST changes: +CARV12.511 PO; -CARV12.52 PO; +CARV6.2511 PO; -CARV6.252 PO; -GABA-586 PO; +GABA300C18 PO; -LOSA25TA5 PO; +LOSA25TA54 PO
--- NOTE | 2018-06-02 12:24 | KCIC ---
EXAM: Chest, 2 views. HISTORY: Dyspnea. COMPARISON: 11/07/2017 FINDINGS: 2 views of the chest are obtained. There is no infiltrate, pleural effusion or pneumothorax. The heart is normal in size. IMPRESSION: No acute pulmonary finding. Electronically signed by: Lynn Chen MD (06/02/2018 12:21 PM) [facility]
== END | disposition home or self-care (01) ==
LOC: KCIC 11:52
PROVIDERS: ATTEND Family Medicine
DX: R06.00 Dyspnea, unspecified (principal)
CPT/HCPCS: 71046

== ENCOUNTER 2018-11-03 02:47 | Observation (INO) | payer OTHER, MEDICARE ==
[~2018-11-03] VITALS: Ht 182.9 cm; Wt 122.9 kg
[~2018-11-03 02:47] MED LIST changes: -PANT40TA3 PO; +PANT40TA77 PO
--- NOTE | 2018-11-03 03:09 | PHYS DOC ---
Past Medical History Past Medical History: Diabetes-Type I, GERD, Other Additional Past Medical Histor: BPH, cardiomyopathy Past Surgical History: Other Additional Past Surgical Histo: ANKLE SURGERY, eye surgery Alcohol Use: Sober Drug Use: None Adult General Chief Complaint Chief Complaint: CHEST PAIN HPI HPI Patient is a 53-year-old male with multiple medical problems including a nonischemic cardiomyopathy with an EF of approximately 20%, diabetes and hypertension who presents with chest tightness. He states the pain has been off and on over the last several hours. States the pain lasts approximately 15 seconds and then dissipates. When he's having the pain does radiate up into his neck and jaw. He denies any nausea or vomiting. No diaphoresis. No significant increase in shortness of breath. A couple of weeks ago he had a spell where he got up and passed out. He did not present for medical attention at that time. His is a nurse at this hospital and she checked his vital signs and they appeared to be okay couple of weeks ago so she decided to keep him at home. Of note, the patient is not currently having any chest pain[] Review of Systems Review of Systems Constitutional: Denies fever or chills [] Eyes: Denies change in visual acuity, redness, or eye pain [] HENT: Denies nasal congestion or sore throat [] Respiratory: Denies cough or shortness of breath [] Cardiovascular: No additional information not addressed in HPI [] GI: Denies abdominal pain, nausea, vomiting, bloody stools or diarrhea [] : Denies dysuria or hematuria [] Musculoskeletal: Denies back pain or joint pain [] Integument: Denies rash or skin lesions [] Neurologic: Denies headache, focal weakness or sensory changes [] Endocrine: Denies polyuria or polydipsia [] All other systems were reviewed and found to be within normal limits, except as documented in this note. Current Medications Current Medications Allergies Allergies Allergies Coded Allergies Type Severity Reaction Last Updated Verified No Known Drug Allergies 06/16/17 No Physical Exam Physical Exam Constitutional: Well developed, well nourished, no acute distress, non-toxic appearance. [] HENT: Normocephalic, atraumatic, bilateral external ears normal, oropharynx m oist, no oral exudates, nose normal. [] Eyes: PERRLA, EOMI, conjunctiva normal, no discharge. [] Neck: Normal range of motion, no tenderness, supple, no stridor. [] Cardiovascular:Heart rate regular rhythm, no murmur [] Lungs & Thorax: Bilateral breath sounds clear to auscultation [] Abdomen: Bowel sounds normal, soft, no tenderness, no masses, no pulsatile masses. [] Skin: Warm, dry, no erythema, no rash. [] Back: No tenderness, no CVA tenderness. [] Extremities: No tenderness, no cyanosis, no clubbing, ROM intact, no edema. [] Neurologic: Alert and oriented X 3, normal motor function, normal sensory function, no focal deficits noted. [] Psychologic: Affect normal, judgement normal, mood normal. [] Current Patient Data Vital Signs Vital Signs Date Time Temp Pulse Resp B/P (MAP) Pulse Ox O2 Delivery O2 Flow Rate FiO2 11/03/18 02:47 98.4 97 18 128/72 (90) 98.4 Lab Values Laboratory Tests Test 11/03/18 03:04 White Blood Count 4.7 x10^3/uL (4.0-11.0) Red Blood Count 3.94 x10^6/uL (4.30-5.70) L Hemoglobin 12.5 g/dL (13.0-17.5) L Hematocrit 37.2 % (39.0-53.0) L Mean Corpuscular Volume 94 fL (79-100) Mean Corpuscular Hemoglobin 32 pg (25-35) Mean Corpuscular Hemoglobin Concent 34 g/dL (31-37) Red Cell Distribution Width 12.5 % (11.5-14.5) Platelet Count 247 x10^3/uL (140-400) Neutrophils (%) (Auto) 56 % (31-73) Lymphocytes (%) (Auto) 30 % (24-48) Monocytes (%) (Auto) 10 % (0-9) H Eosinophils (%) (Auto) 3 % (0-3) Basophils (%) (Auto) 1 % (0-3) Neutrophils # (Auto) 2.6 x10^3/uL (1.8-7.7) Lymphocytes # (Auto) 1.4 x10^3/uL (1.0-4.8) Monocytes # (Auto) 0.4 x10^3/uL (0.0-1.1) Eosinophils # (Auto) 0.2 x10^3/uL (0.0-0.7) Basophils # (Auto) 0.0 x10^3/uL (0.0-0.2) Sodium Level 139 mmol/L (136-145) Potassium Level 4.1 mmol/L (3.5-5.1) Chloride Level 102 mmol/L (98-107) Carbon Dioxide Level 29 mmol/L (21-32) Anion Gap 8 (6-14) Blood Urea Nitrogen 22 mg/dL (8-26) Creatinine 1.2 mg/dL (0.7-1.3) Estimated GFR (Cockcroft-Gault) 77.2 BUN/Creatinine Ratio 18 (6-20) Glucose Level 337 mg/dL (70-99) H Calcium Level 8.8 mg/dL (8.5-10.1) Total Bilirubin 0.1 mg/dL (0.2-1.0) L Aspartate Amino Transferase (AST) 16 U/L (15-37) Alanine Aminotransferase (ALT) 27 U/L (16-63) Alkaline Phosphatase 96 U/L (46-116) Troponin I Quantitative < 0.017 ng/mL (0.000-0.055) JW-Rrr-Y-Type Natriuretic Peptide 18 pg/mL (0-124) Total Protein 7.5 g/dL (6.4-8.2) Albumin 3.6 g/dL (3.4-5.0) Albumin/Globulin Ratio 0.9 (1.0-1.7) L Laboratory Tests 11/03/18 03:04 Laboratory Tests 11/03/18 03:04 EKG EKG [] Interpretation Time: EKG: Normal sinus rhythm rate in the 90s with no ischemic ST-T changes Radiology/Procedures Radiology/Procedures [] Impressions: Chest x-ray: Negative exam as interpreted by me Course & Med Decision Making Course & Med Decision Making Pertinent Labs and Imaging studies reviewed. (See chart for details) [ED course: Evaluation reveals a 53-year-old male with chest pain. He has a known history of nonischemic cardiomyopathy but he is at least moderate risk for development of an underlying ischemic component. His heart score is 5. He was chest pain-free throughout his stay in the department. We'll go ahead and admit him to the hospital and have cardiology evaluate him.] Dragon Disclaimer Dragon Disclaimer This electronic medical record was generated, in whole or in part, using a voice recognition dictation system. Departure Departure Impression: Primary Impression: Chest pain Disposition: ADMITTED INPATIENT Admitting Physician: RUI Condition: GUARDED Referrals: SHIRLEY GARCIA MD (PCP) The HEART Score for CP Pts HEART Score for Chest Pain: HEART Score for Chest Pain Response (Comments) Value History Highly Suspicious 2 ECG Normal 0 Age >45 - < 65 1 Risk Factors >3 Risk Factors or Hx CAD 2 Troponin < Normal Limit 0 Total 5 Risk Factors: Risk Factors: DM, Current or recent (<one month) smoker, HTN, HLP, family history of CAD, obesity. Risk Scores: Score 0 - 3: 2.5% MACE over next 6 weeks - Discharge Home Score 4 - 6: 20.3% MACE over next 6 weeks - Admit for Clinical Observation Score 7 - 10: 72.7% MACE over next 6 weeks - Early Invasive Strategies Problem Qualifiers Primary Impression: Chest pain Chest pain type: unspecified Qualified Codes: R07.9 - Chest pain, unspecified LEON MARI DO Nov 03, 2018 03:09
[2018-11-03] MEDS ORDERED: ONDANSETRON PF 4 MG/2 ML VIAL. IV PRN ×2 (03:15→09:15)
[2018-11-03] MEDS ORDERED: ACETAMINOPHEN 325 MG TABLET. PO PRN (03:15)
[2018-11-03] MEDS ORDERED: NITROGLYCERIN SUBLINGUAL 0.4 MG BOTTLE OF 25. SL PRN (03:15)
[2018-11-03] MEDS ORDERED: ASPIRIN CHEWABLE 81 MG TABLET. PO ONE (03:15)
[2018-11-03] MEDS ORDERED: MORPHINE SULFATE 2 MG/ML VIAL. IV PRN (03:15)
[2018-11-03 03:17] LABS: BASO % 1 % (0-3); EOS # 0.2 x10^3/uL (0.0-0.7); EOS % 3 % (0-3); HEMATOCRIT 37.2 % (39.0-53.0); HEMOGLOBIN 12.5 g/dL (13.0-17.5); LYMPH # 1.4 x10^3/uL (1.0-4.8); LYMPH % 30 % (24-48); MEAN CORPUSCULAR HEMOGLOBIN 32 pg (25-35); MEAN CORPUSCULAR HGB CONC 34 g/dL (31-37); MEAN CORPUSCULAR VOLUME 94 fL (79-100); MONO # 0.4 x10^3/uL (0.0-1.1); MONO % 10 % (0-9); NEUT # 2.6 x10^3/uL (1.8-7.7); NEUT % 56 % (31-73); PLATELET COUNT 247 x10^3/uL (140-400); RED BLOOD COUNT 3.94 x10^6/uL (4.30-5.70); RED CELL DISTRIBUTION WIDTH 12.5 % (11.5-14.5); WHITE BLOOD COUNT 4.7 x10^3/uL (4.0-11.0)
[2018-11-03 03:27] LABS: CALCIUM 8.8 mg/dL (8.5-10.1); CREATININE 1.2 mg/dL (0.7-1.3); GFR 77.2; POTASSIUM 4.1 mmol/L (3.5-5.1)
[2018-11-03] MEDS ORDERED: DEXTROSE 50% 25 GM / 50ML DISP.SYRIN. IV PRN ×2 (03:30→09:15)
[2018-11-03] MEDS ORDERED: IV DEXTROSE 5% 250 ML BAG. IV PRN ×2 (03:30→09:15)
[2018-11-03 03:32] LABS: ALBUMIN 3.6 g/dL (3.4-5.0); ALBUMIN/GLOBULIN RATIO 0.9 (1.0-1.7); TOTAL BILIRUBIN 0.1 mg/dL (0.2-1.0); TOTAL PROTEIN 7.5 g/dL (6.4-8.2)
[2018-11-03] MEDS ORDERED: VENL75CA PO (04:23)
[2018-11-03] MEDS ORDERED: METF850T8 PO (04:23)
[2018-11-03] MEDS ORDERED: INSU100V11 IJ (04:23)
[2018-11-03] MEDS ORDERED: GLIP10TA13 PO (04:23)
[2018-11-03] MEDS ORDERED: DORZ10DR21 EACHEYE (04:24)
[2018-11-03] MEDS ORDERED: INSU100V31 SQ (04:24)
--- NOTE | 2018-11-03 05:26 | EKG ---
[facility] [address] [place] [address] Test Date: 2018-11-03 Test Time: 02:55:34 Pat Name: MEGHANA URENA Department: Room: 208 1 Gender: M [employer]: : 1965 Requested By: LEON MARI Order Number: [id number] Reading MD: Adonis Perez MD Measurements Intervals [place] Rate: 97 P: 52 MA: 162 QRS: 52 QRSD: 80 T: 7 QT: 300 QTc: 385 Interpretive Statements SINUS RHYTHM Electronically Signed On 11-03-2018 18:51:00 CDT by Adonis Perez MD
[2018-11-03 05:32] VITALS: BP 150/93
--- NOTE | 2018-11-03 06:32 | RAD ---
Chest AP portable at 0301: Reason for examination: Chest pain. Comparison is made to previous study dated 06/02/2018. The heart size is normal. Mediastinum is unremarkable. Lung hacektt are clear. No acute bony abnormalities are seen. Impression: No acute cardiopulmonary disease. Electronically signed by: Ami Cain MD (11/03/2018 6:29 AM) [facility]
[2018-11-03 07:00] VITALS: BP 148/86
[2018-11-03] MEDS ORDERED: INSULIN LISPRO 300 UNITS/3 ML VIAL. SQ SCH ×3 (08:00→12:00)
[2018-11-03] MEDS ORDERED: cloNIDine HCL 0.1 MG TABLET PO PRN (09:30)
[2018-11-03] MEDS ORDERED: HYDROcodone/APAP 5/325MG 1 TAB TABLET PO PRN (09:30)
[2018-11-03 09:57] LABS: CHOLESTEROL/HDL RATIO 2.5
--- NOTE | 2018-11-03 10:22 | PDOC2 ---
CARDIAC CONSULT DATE OF CONSULT Date of Consult DATE: 11/03/18 TIME: 09:55 REASON FOR CONSULT Reason for Consult: Chest pain REFERRING PHYSICIAN Referring Physician: Kt SOURCE Source: Chart review, Patient HISTORY OF PRESENT ILLNESS HISTORY OF PRESENT ILLNESS This is a pleasant 53 yo male admitted for complains of chest pain. Reports that he does have occasionally SOA with going up the stairs but not significant. He does not exercise and work primarily sedentary. Denies any exertional CP. Reports that he was having chest tightness that last about 15 sec at a time and also discomfort in the back of his throat but no coughing or burning like when has episode of heartburn. Reports that his discomfort radidates to his left lower back. Denies any frequency in urination and verbalized complete emptying of his bladder. No recent falls or injury but did passed out 2 weeks ago and no injury. He does use insulin for alessia DM and metformin. PAST MEDICAL HISTORY Cardiovascular: AFIB, CHF, HTN, Hyperlipidemia, Pulmonary hypertension, Other (NICM; pericarditis) Pulmonary: Other (LANG) CENTRAL NERVOUS SYSTEM: Other (No pertinent history) GI: GERD, Irritable bowel disease, Peptic Ulcer disease Heme/Onc: Anemia NOS Hepatobiliary: No pertinent hx Psych: Anxiety Musculoskeletal: Osteoarthritis Rheumatologic: No pertinent hx Infectious disease: No pertinent hx ENT: Other (SQUAXIN) Renal/: No pertinent hx Endocrine: Diabetes Dermatology: No pertinent hx PAST SURGICAL HISTORY Past Surgical History: Cataract Removal, Other (left eye surgery from retinal detachment) FAMILY HISTORY Family History: Diabetes SOCIAL HISTORY Smoke: Quit ALCOHOL: none Drugs: None Lives: with Family CURRENT MEDICATIONS CURRENT MEDICATIONS Current Medications Medications (Trade) Dose Ordered Sig/Chaitanya Route PRN Reason Start Time Stop Time Status Last Admin Dose Admin Aspirin (Children'S Aspirin) 324 mg 1X ONCE PO 11/03/18 03:15 11/03/18 03:16 DC 11/03/18 03:17 Acetaminophen (Tylenol) 650 mg PRN Q4HRS PRN PO FEVER 11/03/18 03:15 11/04/18 03:14 11/03/18 07:45 ALLERGIES ALLERGIES: Coded Allergies: No Known Drug Allergies (Unverified , 06/16/17) ROS Review of System 14 point ROS evaluated with pertinent positives noted per HPI PHYSICAL EXAM General: Alert, Oriented X3, Cooperative, No acute distress HEENT: Atraumatic, Mucous membr. moist/pink Lungs: Clear to auscultation, Normal air movement Heart: Regular rate (SR), Normal S1, Normal S2, No murmurs Abdomen: Soft, No tenderness, Other (obese) Extremities: No cyanosis, No edema Skin: No breakdown, No significant lesion Neuro: Normal speech, Sensation intact Psych/Mental Status: Mental status NL, Mood NL MUSCULOSKELETAL: Osteoarthritic changes both hands VITALS/I&O VITALS/I&O: Vital Signs Date Time Temp Pulse Resp B/P (MAP) Pulse Ox O2 Delivery O2 Flow Rate FiO2 11/03/18 08:00 Room Air 11/03/18 07:00 98.1 84 18 148/86 (106) 100 98.1 I & O 11/02/18 11/02/18 11/03/18 15:00 23:00 07:00 Intake Total 0 ml Output Total 400 ml Balance -400 ml LABS Lab: Laboratory Tests Test 11/03/18 03:04 11/03/18 06:10 White Blood Count 4.7 x10^3/uL (4.0-11.0) Red Blood Count 3.94 x10^6/uL (4.30-5.70) L Hemoglobin 12.5 g/dL (13.0-17.5) L Hematocrit 37.2 % (39.0-53.0) L Mean Corpuscular Volume 94 fL (79-100) Mean Corpuscular Hemoglobin 32 pg (25-35) Mean Corpuscular Hemoglobin Concent 34 g/dL (31-37) Red Cell Distribution Width 12.5 % (11.5-14.5) Platelet Count 247 x10^3/uL (140-400) Neutrophils (%) (Auto) 56 % (31-73) Lymphocytes (%) (Auto) 30 % (24-48) Monocytes (%) (Auto) 10 % (0-9) H Eosinophils (%) (Auto) 3 % (0-3) Basophils (%) (Auto) 1 % (0-3) Neutrophils # (Auto) 2.6 x10^3/uL (1.8-7.7) Lymphocytes # (Auto) 1.4 x10^3/uL (1.0-4.8) Monocytes # (Auto) 0.4 x10^3/uL (0.0-1.1) Eosinophils # (Auto) 0.2 x10^3/uL (0.0-0.7) Basophils # (Auto) 0.0 x10^3/uL (0.0-0.2) Sodium Level 139 mmol/L (136-145) Potassium Level 4.1 mmol/L (3.5-5.1) Chloride Level 102 mmol/L (98-107) Carbon Dioxide Level 29 mmol/L (21-32) Anion Gap 8 (6-14) Blood Urea Nitrogen 22 mg/dL (8-26) Creatinine 1.2 mg/dL (0.7-1.3) Estimated GFR (Cockcroft-Gault) 77.2 BUN/Creatinine Ratio 18 (6-20) Glucose Level 337 mg/dL (70-99) H Calcium Level 8.8 mg/dL (8.5-10.1) Total Bilirubin 0.1 mg/dL (0.2-1.0) L Aspartate Amino Transferase (AST) 16 U/L (15-37) Alanine Aminotransferase (ALT) 27 U/L (16-63) Alkaline Phosphatase 96 U/L (46-116) Troponin I Quantitative < 0.017 ng/mL (0.000-0.055) < 0.017 ng/mL (0.000-0.055) NE-Gmx-L-Type Natriuretic Peptide 18 pg/mL (0-124) Total Protein 7.5 g/dL (6.4-8.2) Albumin 3.6 g/dL (3.4-5.0) Albumin/Globulin Ratio 0.9 (1.0-1.7) L Laboratory Tests 11/03/18 03:04 Laboratory Tests 11/03/18 03:04 ECHOCARDIOGRAM ECHOCARDIOGRAM <Conclusion> The left ventricle is normal size. The left ventricular systolic function is normal and the ejection fraction is within normal range. Left ventricular ejection fraction is 55-60% There is slight borderline hypokinesis in the apex. There is mild concentric left ventricular hypertrophy. There is no significant aortic valvular stenosis. Doppler and Color Flow revealed no significant aortic regurgitation. Doppler and Color Flow revealed no mitral valve regurgitation noted. Doppler and Color Flow revealed no tricuspid valve regurgitation noted. DATE: 10/03/17 1022 HEART CATH HEART CATH Conclusion This pt has a severe nonischemic dilated cardiomyopathy possibly secondary to previous substance abuse. I would recommend medical treatment, cardiac rehab, diet and weight loss. Will need possible AICD and evaluation for possible transplant DATE: 12/28/15 8894 ASSESSMENT/PLAN ASSESSMENT/PLAN 1. Atypical CP 2. Syncope: happened 2 weeks ago. 3. HTN: controlled 4. HLP: on goal 5. Hx of PAFIB: maintaing SR 6. Hx of NICM 7. DM2 8. Morbid obesity: CPAP intolerant Recommendations 1. MPI scheduled as an outpt, will proceed today. 2. TTE 3. Continue secondary prevention. 4. Recent event monitor in 07/2017 with no arrhythmias. Will arrange for MCOT for 4 weeks pending ischemic workup. 5. 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
[2018-11-03] MEDS ORDERED: POTASSIUM CHLORIDE 10 MEQ TABLET.ER. PO SCH (10:30)
[2018-11-03] MEDS ORDERED: REGADENOSON 0.4 MG/5 ML DISP.SYRIN. IV ONE (10:30)
[2018-11-03] MEDS ORDERED: TORSEMIDE 20 MG TABLET. PO SCH (10:30)
[2018-11-03] MEDS ORDERED: SACUBITRIL/VALSARTAN 49/51MG TABLET. PO SCH (10:30)
[2018-11-03] MEDS ORDERED: CARVEDILOL 12.5 MG TABLET. PO SCH (10:30)
[2018-11-03] MEDS ORDERED: MULTIVITAMIN with MINERAL TABLET. PO SCH (10:30)
[2018-11-03] MEDS ORDERED: ASPIRIN 325 MG TABLET PO SCH (10:30)
[2018-11-03 11:00] VITALS: BP 161/89
[2018-11-03] MEDS ORDERED: VENLAFAXINE XR 37.5 MG CAP.ER.24H. PO SCH (12:00)
[2018-11-03] MEDS ORDERED: DORZOLAMIDE 2% OPHTH SOLUTION 10ML BOTTLE. OU SCH (12:00)
[2018-11-03] MEDS ORDERED: TIMOLOL 0.5% OPHTH SOLUTION 5ML BOTTLE. OU SCH (12:00)
--- NOTE | 2018-11-03 12:22 | NUR ---
SS following for discharge planning. SS reviewed pt chart. Pt is from home with spouse and is currently on room air. No discharge needs noted at this time. SS will continue to follow for discharge planning.
--- NOTE | 2018-11-03 12:36 | RAD ---
MR#: [id number] Date of Study: 11/03/2018 Ordering Physician: JB GAINES, Referring Physician: SVETLANA VEGA Tech: Lynn Perez RT (R) (N) APPROVED REPORT Test Type: Pharmacological Stress Nurse/Tech: Satinder Varela RN Test Indications: chest pain Cardiac History: asthma, HTN, DM Medications: See Electronic Medical Record Medical History: See Electronic Medical Record Resting ECG: SR Resting Heart Rate: 89 bpm Resting Blood Pressure: 146/83mmHg Pretest Chest Pain: None Nurse/Tech Notes Lungs CTA, S1S2 Consent: The procedure was explained to the patient in lay terms. Informed consent was witnessed. Onesimo eout was entered into [employer]. History and Stress Test performed by Satinder Varela RN Pharm. Details Pharmacologic stress testing was performed using 0.4mg per 5ml of regadenoson given intravenously ove r 7-10 seconds. Stress Symptoms No chest pain or symptoms. POST EXERCISE Reason for Termination: Infusion complete Max HR: 97 bpm Max Blood Pressure: 147/80mmHg Blood Pressure response to exercise: Normal blood pressure response during stress. Heart Rate response to exercise: normal response Chest Pain: No. Arrhythmia: No. ST Change: No. INTERPRETATION Stress EKG Conclusion: No evidence of stress induced EKG changes Imaging Protocol IMAGE PROTOCOL: Stress Tc-99m/rest Tc-99m 2 days Rest: Stress: Viability: Radiopharm.Tc99m Sestamibi [id number] Duration 15min. Img Date 11/03/2018 Inj-Img [id number]. Stress Admin Site: IV - Right AntecubitalAdministrator: MAIKEL Morel, ARRT (R)(N) STRESS DATA End Diast. Vol.100.0mlAv. Heart Rate92.0bpm End Syst. Vol.36.0mlCO Index BSA0.0L/min Myocardial Xvbs434.0gEject. Lzvmyvwk27.0% Stress Rates Pk. Fill Rate3.31EDV/secLVtime Pk. Fill 57.53msec Pk. Empty Rate4.19ESV/secLVtime Pk. Eject97.30msec 03/12 Pk. Fill2.23EDV/sec Stress Scores Regional WT3.00Summed WT23.00 Regional WM0.00Summed WM3.00 LV Perfusion Normal perfusion at stress. Wall Motion Normal wall motion. LV Perf. Quant 17 Seg. SSS0.00 Stress Defect Extent (% LAD)0.00Rest Defect Extent (% LAD)Rev. Defect Extent (% LAD)0.00 Stress Defect Extent (% LCX) 0.00Rest Defect Extent (% LCX)Rev. Defect Extent (% LCX)0.00 Stress Defect Extent (% RCA)0.00Rest Defect Extent (% RCA)Rev. Defect Extent (% RCA)0.00 Stress Defect Extent (% ABE)0.00Rest Defect Extent (% ABE)Rev. Defect Extent (% ABE)0.00 Other Information Quality:Average Risk Assessment: Low Risk Conclusion 1. No evidence of EKG changes with stress testing. 2. Normal perfusion at stress. 3. Low risk study. 4. EF > 60%. Signed by : Adonis Perez, Electronically Approved : 11/03/2018 12:35:29
--- NOTE | 2018-11-03 12:53 | PDOC1 ---
History and Physical Date of Admission Date of Admission DATE: 11/03/18 TIME: 12:47 Identification/Chief Complaint Chief Complaint cp Source Source: Caregiver, Chart review, Patient History of Present Illness History of Present Illness 53 male, of our RN here, CP, left sided at rest, woke him up from sleep maybe twice already, he describes as intermittent, chest tightness, could last 10-15 sec or a few mins, No identifiable precip or alleviating factors, no NGT at home, no known CAD, used to follow with DR Moses but now seeing DR Landa, Also hx of Paroxysmal a fib, event monitor x 30 days unable to catch any arrhyth mogenic event, He just had first part of MPI, he does have risk factors with DM2 high hgba1c, helps manage his med issues, also relays to me hx of witnessed syncope, got in touch with PMG cards and is planned for loop recorder (x 3 yrs). Still having some intermittent CP, BP high side (160s, he usually runs 120s per ) Trops x 2 neg, CXR unimpressive Past Medical History Cardiovascular: AFIB, CHF, HTN, Hyperlipidemia, Pulmonary hypertension, Other (NICM; pericarditis) Pulmonary: Other (LANG) CENTRAL NERVOUS SYSTEM: Other (No pertinent history) GI: GERD, Irritable bowel disease, Peptic Ulcer disease Heme/Onc: Anemia NOS Hepatobiliary: No pertinent hx Psych: Anxiety Musculoskeletal: Osteoarthritis Rheumatologic: No pertinent hx Infectious disease: No pertinent hx ENT: Other ([place]) Renal/: No pertinent hx Endocrine: Diabetes Dermatology: No pertinent hx Past Surgical History Past Surgical History: Cataract Removal, Other (left eye surgery from retinal detachment) Family History Family History: Diabetes Social History Smoke: No ALCOHOL: none Drugs: None Current Problem List Problem List Problems Medical Problems: (1) Chest pain Status: Acute Current Medications Current Medications Current Medications Aspirin (Children'S Aspirin) 324 mg 1X ONCE PO Last administered on 11/03/18at 03:17; Start 11/03/18 at 03:15; Stop 11/03/18 at 03:16; Status DC Ondansetron HCl (Zofran) 4 mg PRN Q8HRS PRN IV NAUSEA/VOMITING; Start 11/03/18 at 03:15; Stop 11/03/18 at 09:16; Status DC Morphine Sulfate (Morphine Sulfate) 2 mg PRN Q2HR PRN IV PAIN; Start 11/03/18 at 03:15; Stop 11/04/18 at 03:14 Acetaminophen (Tylenol) 650 mg PRN Q4HRS PRN PO FEVER Last administered on 11/03/18at 07:45; Start 11/03/18 at 03:15; Stop 11/04/18 at 03:14 Nitroglycerin (Nitrostat) 0.4 mg PRN Q5MIN PRN SL CHEST PAIN; Start 11/03/18 at 03:15; Stop 11/04/18 at 03:14 Insulin Human Lispro (HumaLOG) 0-7 UNITS TIDWMEALS SQ ; Start 11/03/18 at 08:00; Stop 11/03/18 at 09:41; Status DC Dextrose (Dextrose 50%-Water Syringe) 12.5 gm PRN Q15MIN PRN IV SEE COMMENTS; Start 11/03/18 at 03:30 Dextrose 250 ml PRN Q15MIN PRN IV SEE COMMENTS; Start 11/03/18 at 03:30 Ondansetron HCl (Zofran) 4 mg PRN Q6HRS PRN IV NAUSEA/VOMITING; Start 11/03/18 at 09:15 Insulin Human Lispro (HumaLOG) 0-9 UNITS TIDWMEALS SQ Last administered on 11/03/18at 12:15; Start 11/03/18 at 12:00 Dextrose (Dextrose 50%-Water Syringe) 12.5 gm PRN Q15MIN PRN IV SEE COMMENTS; Start 11/03/18 at 09:15 Dextrose 250 ml PRN Q15MIN PRN IV SEE COMMENTS; Start 11/03/18 at 09:15 Aspirin (Meena Aspirin) 325 mg DAILY PO Last administered on 11/03/18at 12:15; Start 11/03/18 at 10:30 Carvedilol (Coreg) 12.5 mg BIDWMEALS PO Last administered on 11/03/18at 12:15; Start 11/03/18 at 10:30 Gabapentin (Neurontin) 300 mg HS PO ; Start 11/03/18 at 21:00 Metformin HCl (Glucophage) 850 mg BIDWMEALS PO ; Start 11/03/18 at 17:00 Nortriptyline HCl (Pamelor) 20 mg QHS PO ; Start 11/03/18 at 21:00 Potassium Chloride (Klor-Con) 10 meq DAILY PO Last administered on 11/03/18at 12:15; Start 11/03/18 at 10:30 Sacubitril/ Valsartan (Entresto 49 Mg-51 Mg) 1 tab BID PO Last administered on 11/03/18at 12:15; Start 11/03/18 at 10:30 Torsemide (Demadex) 20 mg DAILY PO Last administered on 11/03/18 12:15; Start 11/03/18 at 10:30 Dorzolamide HCl (Trusopt) 1 drop BID OU ; Start 11/03/18 at 12:00 Glipizide (Glucotrol) 10 mg BIDBFRMEAL PO ; Start 11/03/18 at 16:30 Insulin Human Lispro (HumaLOG) 20 units TIDWMEALS SQ Last administered on 11/03/18at 12:15; Start 11/03/18 at 12:00 Insulin Glargine (Lantus Syringe) 30 unit QHS SQ ; Start 11/03/18 at 21:00 Multivitamins (Thera M Plus) 1 tab DAILY PO Last administered on 11/03/18at 12:15; Start 11/03/18 at 10:30 Venlafaxine HCl (Effexor Xr) 75 mg DAILY PO Last administered on 11/03/18at 12:15; Start 11/03/18 at 12:00 Acetaminophen/ Hydrocodone Bitart (Lortab 5/325) 1 tab PRN Q4HRS PRN PO MODERATE PAIN; Start 11/03/18 at 09:30 Clonidine HCl (Catapres) 0.1 mg PRN Q1HR PRN PO HYPERTENSION; Start 11/03/18 at 09:30 Timolol Maleate (Timoptic 0.5% Ophth) 1 drop BID OU ; Start 11/03/18 at 12:00 Regadenoson (Lexiscan) 0.4 mg 1X ONCE IV Last administered on 11/03/18at 10:46; Start 11/03/18 at 10:30; Stop 11/03/18 at 10:31; Status DC Active Scripts Active Reported Cosopt Eye Drops (Dorzolamide Hcl/Timolol Maleat) 10 Ml Drops 1 Drop EACHEYE BID Novolog (Insulin Aspart) 100 Unit/1 Ml Vial 20 Unit SQ TIDWMEALS Effexor Xr (Venlafaxine Hcl) 75 Mg Cap.er.24h 1 Cap PO DAILY Glipizide 10 Mg Tablet 1 Tab PO BID Metformin Hcl 850 Mg Tablet 850 Mg PO BIDWMEALS Gabapentin (Gabapentin) 300 Mg Capsule 300 Mg PO HS Torsemide 20 Mg Tablet 20 Mg PO DAILY Carvedilol (Carvedilol) 12.5 Mg Tablet 12.5 Mg PO BIDWMEALS Entresto 49 mg-51 mg Tablet (Sacubitril/Valsartan) 1 Each Tablet 1 Each PO BID Multi-Vitamin Daily (Multivitamin) 1 Each Tablet 1 Each PO DAILY Potassium Chloride 10 Meq Capsule.er 10 Meq PO DAILY Aspirin 325 Mg Tablet 325 Mg PO DAILY Nortriptyline Hcl 10 Mg Capsule 2 Cap PO QHS Lantus Solostar (Insulin Glargine,Hum.rec.anlog) 100 Unit/1 Ml Insuln.pen 30 Unit SQ QHS Allergies Allergies: Coded Allergies: No Known Drug Allergies (Unverified , 06/16/17) ROS Review of System palpitations occ, CP, no soa, no lightheadedness, no diaphoresis, psitive for syncope - all else 14 pt neg Physical Exam General: Alert, Oriented X3, Cooperative, No acute distress HEENT: Atraumatic, PERRLA, EOMI Lungs: Clear to auscultation, Normal air movement Heart: S1S2, RRR, no thrills, no rubs, no gallops Cardiovascular: S1 Abdomen: Normal bowel sounds, Soft, No tenderness, No hepatosplenomegaly, No masses Male Genitals Exam: normal genitalia, normal prostate Extremities: No clubbing, No cyanosis, No edema, Normal pulses, No tenderness/swelling Skin: No rashes, No breakdown, No significant lesion Neuro: Normal gait, Normal speech, Strength at 5/5 X4 ext, Normal tone, Sensation intact, Cranial nerves 3-12 NL, Reflexes 2+ Psych/Mental Status: Mental status NL, Mood NL Vitals Vitals Vital Signs Date Time Temp Pulse Resp B/P (MAP) Pulse Ox O2 Delivery O2 Flow Rate FiO2 11/03/18 12:15 101 161/89 11/03/18 11:00 98.6 16 95 Room Air 98.6 Labs Labs Laboratory Tests Test 11/03/18 03:04 11/03/18 06:10 11/03/18 08:55 White Blood Count 4.7 x10^3/uL (4.0-11.0) Red Blood Count 3.94 x10^6/uL (4.30-5.70) Hemoglobin 12.5 g/dL (13.0-17.5) Hematocrit 37.2 % (39.0-53.0) Mean Corpuscular Volume 94 fL (79-100) Mean Corpuscular Hemoglobin 32 pg (25-35) Mean Corpuscular Hemoglobin Concent 34 g/dL (31-37) Red Cell Distribution Width 12.5 % (11.5-14.5) Platelet Count 247 x10^3/uL (140-400) Neutrophils (%) (Auto) 56 % (31-73) Lymphocytes (%) (Auto) 30 % (24-48) Monocytes (%) (Auto) 10 % (0-9) Eosinophils (%) (Auto) 3 % (0-3) Basophils (%) (Auto) 1 % (0-3) Neutrophils # (Auto) 2.6 x10^3/uL (1.8-7.7) Lymphocytes # (Auto) 1.4 x10^3/uL (1.0-4.8) Monocytes # (Auto) 0.4 x10^3/uL (0.0-1.1) Eosinophils # (Auto) 0.2 x10^3/uL (0.0-0.7) Basophils # (Auto) 0.0 x10^3/uL (0.0-0.2) Sodium Level 139 mmol/L (136-145) Potassium Level 4.1 mmol/L (3.5-5.1) Chloride Level 102 mmol/L (98-107) Carbon Dioxide Level 29 mmol/L (21-32) Anion Gap 8 (6-14) Blood Urea Nitrogen 22 mg/dL (8-26) Creatinine 1.2 mg/dL (0.7-1.3) Estimated GFR (Cockcroft-Gault) 77.2 BUN/Creatinine Ratio 18 (6-20) Glucose Level 337 mg/dL (70-99) Calcium Level 8.8 mg/dL (8.5-10.1) Total Bilirubin 0.1 mg/dL (0.2-1.0) Aspartate Amino Transf (AST/SGOT) 16 U/L (15-37) Alanine Aminotransferase (ALT/SGPT) 27 U/L (16-63) Alkaline Phosphatase 96 U/L (46-116) Troponin I Quantitative < 0.017 ng/mL (0.000-0.055) < 0.017 ng/mL (0.000-0.055) < 0.017 ng/mL (0.000-0.055) MB-Hsj-K-Type Natriuretic Peptide 18 pg/mL (0-124) Total Protein 7.5 g/dL (6.4-8.2) Albumin 3.6 g/dL (3.4-5.0) Albumin/Globulin Ratio 0.9 (1.0-1.7) Triglycerides Level 109 mg/dL (0-150) Cholesterol Level 134 mg/dL (0-200) LDL Cholesterol, Calculated 58 mg/dL (0-100) VLDL Cholesterol, Calculated 22 mg/dL (0-40) Non-HDL Cholesterol Calculated 80 mg/dL (0-129) HDL Cholesterol 54 mg/dL (40-60) Cholesterol/HDL Ratio 2.5 Laboratory Tests Test 11/03/18 03:04 11/03/18 06:10 11/03/18 08:55 White Blood Count 4.7 x10^3/uL (4.0-11.0) Red Blood Count 3.94 x10^6/uL (4.30-5.70) Hemoglobin 12.5 g/dL (13.0-17.5) Hematocrit 37.2 % (39.0-53.0) Mean Corpuscular Volume 94 fL (79-100) Mean Corpuscular Hemoglobin 32 pg (25-35) Mean Corpuscular Hemoglobin Concent 34 g/dL (31-37) Red Cell Distribution Width 12.5 % (11.5-14.5) Platelet Count 247 x10^3/uL (140-400) Neutrophils (%) (Auto) 56 % (31-73) Lymphocytes (%) (Auto) 30 % (24-48) Monocytes (%) (Auto) 10 % (0-9) Eosinophils (%) (Auto) 3 % (0-3) Basophils (%) (Auto) 1 % (0-3) Neutrophils # (Auto) 2.6 x10^3/uL (1.8-7.7) Lymphocytes # (Auto) 1.4 x10^3/uL (1.0-4.8) Monocytes # (Auto) 0.4 x10^3/uL (0.0-1.1) Eosinophils # (Auto) 0.2 x10^3/uL (0.0-0.7) Basophils # (Auto) 0.0 x10^3/uL (0.0-0.2) Sodium Level 139 mmol/L (136-145) Potassium Level 4.1 mmol/L (3.5-5.1) Chloride Level 102 mmol/L (98-107) Carbon Dioxide Level 29 mmol/L (21-32) Anion Gap 8 (6-14) Blood Urea Nitrogen 22 mg/dL (8-26) Creatinine 1.2 mg/dL (0.7-1.3) Estimated GFR (Cockcroft-Gault) 77.2 BUN/Creatinine Ratio 18 (6-20) Glucose Level 337 mg/dL (70-99) Calcium Level 8.8 mg/dL (8.5-10.1) Total Bilirubin 0.1 mg/dL (0.2-1.0) Aspartate Amino Transf (AST/SGOT) 16 U/L (15-37) Alanine Aminotransferase (ALT/SGPT) 27 U/L (16-63) Alkaline Phosphatase 96 U/L (46-116) Troponin I Quantitative < 0.017 ng/mL (0.000-0.055) < 0.017 ng/mL (0.000-0.055) < 0.017 ng/mL (0.000-0.055) SY-Fju-V-Type Natriuretic Peptide 18 pg/mL (0-124) Total Protein 7.5 g/dL (6.4-8.2) Albumin 3.6 g/dL (3.4-5.0) Albumin/Globulin Ratio 0.9 (1.0-1.7) Triglycerides Level 109 mg/dL (0-150) Cholesterol Level 134 mg/dL (0-200) LDL Cholesterol, Calculated 58 mg/dL (0-100) VLDL Cholesterol, Calculated 22 mg/dL (0-40) Non-HDL Cholesterol Calculated 80 mg/dL (0-129) HDL Cholesterol 54 mg/dL (40-60) Cholesterol/HDL Ratio 2.5 VTE Prophylaxis Ordered VTE Prophylaxis Devices: Yes VTE Pharmacological Prophylaxi: Yes Assessment/Plan Assessment/Plan 1. CP, palpitations 2, Hx of recurrence syncope with unyoelding event monitor 3. Obesity BMI 37 4/ DM 2 with high hgba1c 5. HTN- high lately PLAn: Await MPI Loop recorder Follow cards recs prn BP meds MAy check hgba1c Check TSH of not yet done FUL MARIBELL Love pt and at bedside GERSON TAVAREZ MD Nov 03, 2018 12:53
[2018-11-03] MEDS ORDERED: LABETALOL 20 MG/4 ML DISP.SYRIN. IVP PRN (13:00)
--- NOTE | 2018-11-03 14:32 | CARD ---
MR#: [id number] Date of Study: 11/03/2018 Ordering Physician: JB GAINES, Referring Physician: JB GAINES Tech: Christa Brady JATINDER APPROVED REPORT EXAM: Two-dimensional and M-mode echocardiogram with Doppler and color Doppler. Other Information Quality : Good Rhythm : Tachycardia INDICATION Chest Pain 2D DIMENSIONS RVDd3.3 (2.9-3.5cm)Left Atrium(2D)3.8 (1.6-4.0cm) IVSd1.2 (0.7-1.1cm)Aortic Root(2D)3.0 (2.0-3.7cm) LVDd4.4 (3.9-5.9cm)LVOT Diameter2.0 (1.8-2.4cm) PWd0.9 (0.7-1.1cm)LVDs2.8 (2.5-4.0cm) FS (%) 35.9 %SV58.4 ml LVEF(%)65.7 (>50%) Aortic Valve AoV Peak Cory.143.6cm/sAoV VTI22.8cm AO Peak GR.8.2mmHgLVOT Peak Cory.109.7cm/s LVOT VTI 19.34cmAO Mean GR.4mmHg NATHAN (VMAX)2.99jp6ZXK (VTI)2.63cm2 Mitral Valve MV E Qztrzuep17.4cm/sMV DECEL VXAO279mp MV A Dcypgcue289.6cm/sMV WDW69bw E/A Ratio0.9MVA (PHT)5.36cm2 TDI E/Lateral E'6.4E/Medial E'12.6 Pulmonary Vein S1 Tpqpvfcr22.5cm/sD2 Cbychcsw73.8cm/s LEFT VENTRICLE The left ventricle is normal size. There is mild asymmetric septal hypertrophy. The left ventricular systolic function is normal and the ejection fraction is within normal range. The Ejection Fraction i s 55-60%. There is normal LV segmental wall motion. Transmitral Doppler flow pattern is Grade I-abnor mal relaxation pattern. RIGHT VENTRICLE The right ventricle is normal size. The right ventricular systolic function is normal. ATRIA The left atrium size is normal. The right atrium size is normal. The interatrial septum is intact wit h no evidence for an atrial septal defect or patent foramen ovale as noted on 2-D or Doppler imaging. AORTIC VALVE The aortic valve is calcified but opens well. Doppler and Color Flow revealed no significant aortic r egurgitation. There is no significant aortic valvular stenosis. MITRAL VALVE The mitral valve is normal in structure and function. There is no evidence of mitral valve prolapse. There is no mitral valve stenosis. Doppler and Color Flow revealed no mitral valve regurgitation note d. TRICUSPID VALVE The tricuspid valve is normal in structure and function. Doppler and Color Flow revealed no tricuspid valve regurgitation noted. There is no tricuspid valve stenosis. PULMONIC VALVE Doppler and Color Flow revealed no pulmonic valvular regurgitation. There is no pulmonic valvular su nosis. GREAT VESSELS The aortic root is normal in size. The ascending aorta is normal in size. The IVC is normal in size a nd collapses >50% with inspiration. PERICARDIAL EFFUSION There is no evidence of significant pericardial effusion. Critical Notification Critical Value: No <Conclusion> The left ventricular systolic function is normal and the ejection fraction is within normal range. Th e Ejection Fraction is 55-60%. There is normal LV segmental wall motion. Signed by : Adonis Perez, Electronically Approved : 11/03/2018 14:31:46
[2018-11-03 15:00] VITALS: BP 145/86
[2018-11-03] MEDS ORDERED: NITR0.4T SL (15:36)
--- NOTE | 2018-11-03 15:38 | PDOC3 ---
Discharge Summary Visit Information Date of Admission: Nov 03, 2018 Date of Discharge: Nov 03, 2018 Admitting Diagnosis Comment: chest pain low risk MPI GERD possibly Final Diagnosis Problems Medical Problems: (1) Chest pain Status: Acute Brief Hospital Course Allergies Allergies Coded Allergies Type Severity Reaction Last Updated Verified No Known Drug Allergies 06/16/17 No Vital Signs Vital Signs Date Time Temp Pulse Resp B/P (MAP) Pulse Ox O2 Delivery O2 Flow Rate FiO2 11/03/18 12:15 101 161/89 11/03/18 11:00 98.6 16 95 Room Air 98.6 Lab Results Laboratory Tests Test 11/03/18 03:04 11/03/18 06:10 11/03/18 08:55 White Blood Count 4.7 x10^3/uL (4.0-11.0) Red Blood Count 3.94 x10^6/uL (4.30-5.70) Hemoglobin 12.5 g/dL (13.0-17.5) Hematocrit 37.2 % (39.0-53.0) Mean Corpuscular Volume 94 fL (79-100) Mean Corpuscular Hemoglobin 32 pg (25-35) Mean Corpuscular Hemoglobin Concent 34 g/dL (31-37) Red Cell Distribution Width 12.5 % (11.5-14.5) Platelet Count 247 x10^3/uL (140-400) Neutrophils (%) (Auto) 56 % (31-73) Lymphocytes (%) (Auto) 30 % (24-48) Monocytes (%) (Auto) 10 % (0-9) Eosinophils (%) (Auto) 3 % (0-3) Basophils (%) (Auto) 1 % (0-3) Neutrophils # (Auto) 2.6 x10^3/uL (1.8-7.7) Lymphocytes # (Auto) 1.4 x10^3/uL (1.0-4.8) Monocytes # (Auto) 0.4 x10^3/uL (0.0-1.1) Eosinophils # (Auto) 0.2 x10^3/uL (0.0-0.7) Basophils # (Auto) 0.0 x10^3/uL (0.0-0.2) Sodium Level 139 mmol/L (136-145) Potassium Level 4.1 mmol/L (3.5-5.1) Chloride Level 102 mmol/L (98-107) Carbon Dioxide Level 29 mmol/L (21-32) Anion Gap 8 (6-14) Blood Urea Nitrogen 22 mg/dL (8-26) Creatinine 1.2 mg/dL (0.7-1.3) Estimated GFR (Cockcroft-Gault) 77.2 BUN/Creatinine Ratio 18 (6-20) Glucose Level 337 mg/dL (70-99) Calcium Level 8.8 mg/dL (8.5-10.1) Total Bilirubin 0.1 mg/dL (0.2-1.0) Aspartate Amino Transf (AST/SGOT) 16 U/L (15-37) Alanine Aminotransferase (ALT/SGPT) 27 U/L (16-63) Alkaline Phosphatase 96 U/L (46-116) Troponin I Quantitative < 0.017 ng/mL (0.000-0.055) < 0.017 ng/mL (0.000-0.055) < 0.017 ng/mL (0.000-0.055) DH-Aaj-J-Type Natriuretic Peptide 18 pg/mL (0-124) Total Protein 7.5 g/dL (6.4-8.2) Albumin 3.6 g/dL (3.4-5.0) Albumin/Globulin Ratio 0.9 (1.0-1.7) Triglycerides Level 109 mg/dL (0-150) Cholesterol Level 134 mg/dL (0-200) LDL Cholesterol, Calculated 58 mg/dL (0-100) VLDL Cholesterol, Calculated 22 mg/dL (0-40) Non-HDL Cholesterol Calculated 80 mg/dL (0-129) HDL Cholesterol 54 mg/dL (40-60) Cholesterol/HDL Ratio 2.5 Thyroid Stimulating Hormone (TSH) 1.899 uIU/mL (0.358-3.74) Laboratory Tests Test 11/03/18 03:04 11/03/18 06:10 11/03/18 08:55 White Blood Count 4.7 x10^3/uL (4.0-11.0) Red Blood Count 3.94 x10^6/uL (4.30-5.70) Hemoglobin 12.5 g/dL (13.0-17.5) Hematocrit 37.2 % (39.0-53.0) Mean Corpuscular Volume 94 fL (79-100) Mean Corpuscular Hemoglobin 32 pg (25-35) Mean Corpuscular Hemoglobin Concent 34 g/dL (31-37) Red Cell Distribution Width 12.5 % (11.5-14.5) Platelet Count 247 x10^3/uL (140-400) Neutrophils (%) (Auto) 56 % (31-73) Lymphocytes (%) (Auto) 30 % (24-48) Monocytes (%) (Auto) 10 % (0-9) Eosinophils (%) (Auto) 3 % (0-3) Basophils (%) (Auto) 1 % (0-3) Neutrophils # (Auto) 2.6 x10^3/uL (1.8-7.7) Lymphocytes # (Auto) 1.4 x10^3/uL (1.0-4.8) Monocytes # (Auto) 0.4 x10^3/uL (0.0-1.1) Eosinophils # (Auto) 0.2 x10^3/uL (0.0-0.7) Basophils # (Auto) 0.0 x10^3/uL (0.0-0.2) Sodium Level 139 mmol/L (136-145) Potassium Level 4.1 mmol/L (3.5-5.1) Chloride Level 102 mmol/L (98-107) Carbon Dioxide Level 29 mmol/L (21-32) Anion Gap 8 (6-14) Blood Urea Nitrogen 22 mg/dL (8-26) Creatinine 1.2 mg/dL (0.7-1.3) Estimated GFR (Cockcroft-Gault) 77.2 BUN/Creatinine Ratio 18 (6-20) Glucose Level 337 mg/dL (70-99) Calcium Level 8.8 mg/dL (8.5-10.1) Total Bilirubin 0.1 mg/dL (0.2-1.0) Aspartate Amino Transf (AST/SGOT) 16 U/L (15-37) Alanine Aminotransferase (ALT/SGPT) 27 U/L (16-63) Alkaline Phosphatase 96 U/L (46-116) Troponin I Quantitative < 0.017 ng/mL (0.000-0.055) < 0.017 ng/mL (0.000-0.055) < 0.017 ng/mL (0.000-0.055) SE-Try-G-Type Natriuretic Peptide 18 pg/mL (0-124) Total Protein 7.5 g/dL (6.4-8.2) Albumin 3.6 g/dL (3.4-5.0) Albumin/Globulin Ratio 0.9 (1.0-1.7) Triglycerides Level 109 mg/dL (0-150) Cholesterol Level 134 mg/dL (0-200) LDL Cholesterol, Calculated 58 mg/dL (0-100) VLDL Cholesterol, Calculated 22 mg/dL (0-40) Non-HDL Cholesterol Calculated 80 mg/dL (0-129) HDL Cholesterol 54 mg/dL (40-60) Cholesterol/HDL Ratio 2.5 Thyroid Stimulating Hormone (TSH) 1.899 uIU/mL (0.358-3.74) Brief Hospital Course Mr. Zamudio is a 53 old [sex] who presented with [ ] History of Present Illness 53 male, of our RN here, CP, left sided at rest, woke him up from sleep maybe twice already, he describes as intermittent, chest tightness, could last 10-15 sec or a few mins, No identifiable precip or alleviating factors, no NGT at home, no known CAD, used to follow with DR Moses but now seeing DR Landa, Also hx of Paroxysmal a fib, event monitor x 30 days unable to catch any a rrhythmogenic event, He just had first part of MPI, he does have risk factors with DM2 high hgba1c, helps manage his med issues, also relays to me hx of witnessed syncope, got in touch with PMG cards and is planned for loop recorder (x 3 yrs). Still having some intermittent CP, BP high side (160s, he usually runs 120s per ) Trops x 2 neg, CXR unimpressive COURSE MPI shows low risk study and SIGNIF improvement of EF > 60% HOme today Discharge Information Condition at Discharge: Improved, Stable Disposition/Orders: D/C to Home Scheduled Aspirin (Aspirin) 325 Mg Tablet, 325 MG PO DAILY, (Reported) Entered as Reported by: Bhupinder Clark on 04/15/16 0592 Last Action: Continued on 11/03/18 0916 by GERSON TAVAREZ Carvedilol (Carvedilol ) 12.5 Mg Tablet, 12.5 MG PO BIDWMEALS, (Reported) Entered as Reported by: ARY MURCIA on 06/11/171425 Last Action: Continued on 11/03/18915 by GERSON TAVAREZ Dorzolamide Hcl/Timolol Maleat (Cosopt Eye Drops) 10 Ml Drops, [address] DROP EACHEYE BID for dr evelina, #10 Ref 6 (Reported) Entered as Reported by: Minh Jacobo on 11/03/18423 Last Action: Converted on 11/03/18915 by GERSON TAVAREZ Gabapentin (Gabapentin ) 300 Mg Capsule, 300 MG PO HS, (Reported) Entered as Reported by: ARY MURCIA on 06/11/171427 Last Action: Continued on 11/03/18915 by GERSON TAVAREZ Glipizide (Glipizide) 10 Mg Tablet, 1 TAB PO BID for diabetes, #60 Ref 5 (Report ed) Entered as Reported by: Minh Jacobo on 11/03/18422 Last Action: Converted on 11/03/18915 by GERSON TAVAREZ Insulin Aspart (Novolog) 100 Unit/1 Ml Vial, 20 UNIT SQ TIDWMEALS for diabetes, (Reported) Entered as Reported by: Minh Jacobo on 11/03/18423 Last Action: Converted on 11/03/18915 by GERSON TAVAREZ Insulin Glargine,Hum.rec.anlog (Lantus Solostar) 100 Unit/1 Ml Insuln.pen, 30 UNIT SQ QHS, #15 Ref 3 (Reported) Entered as Reported by: STEFAN PAREDES on 07/28/15 1442 Last Action: Converted on 11/03/18915 by GERSONClay TAVAREZ Metformin Hcl (Metformin Hcl) 850 Mg Tablet, 850 MG PO BIDWMEALS for ANTI- DIABETIC, Ref 0 (Reported) Entered as Reported by: Minh Jacobo on 11/03/18422 Last Action: Continued on 11/03/18915 by GERSON TAVAREZ Multivitamin (Multi-Vitamin Daily) 1 Each Tablet, 1 EACH PO DAILY, (Reported) Entered as Reported by: Bhupinder Clark on 04/15/161735 Last Action: Converted on 11/03/18915 by GERSON TAVAREZ Nortriptyline Hcl (Nortriptyline Hcl) 10 Mg Capsule, 2 CAP PO QHS, #30 (Reported) Entered as Reported by: JOHNNA NICHOLE on 12/26/15 182 Last Action: Continued on 11/03/18915 by GERSON TAVAREZ Potassium Chloride (Potassium Chloride) 10 Meq Capsule.er, 10 MEQ PO DAILY, (Reported) Entered as Reported by: Bhupinder Clark on 04/15/161735 Last Action: Continued on 11/03/18915 by GERSON TAVAREZ Sacubitril/Valsartan (Entresto 49 mg-51 mg Tablet) 1 Each Tablet, 1 EACH PO BID, (Reported) Entered as Reported by: Bhupinder Clark on 04/15/161735 Last Action: Continued on 11/03/18915 by GERSON TAVAREZ Torsemide (Torsemide) 20 Mg Tablet, 20 MG PO DAILY, (Reported) Entered as Reported by: ARY MURCIA on 06/11/17 1427 Last Action: Continued on 11/03/18915 by GERSON TAVAREZ Venlafaxine Hcl (Effexor Xr) 75 Mg Cap.er.24h, 1 CAP PO DAILY for dr ordered, #30 Ref 1 (Reported) Entered as Reported by: Minh Jacobo on 11/03/18422 Last Action: Converted on 11/03/18915 by GERSON TAVAREZ Scheduled PRN Nitroglycerin (Nitrostat) 0.4 Mg Tab.subl, 0.4 MG SL PRN Q5MIN PRN for CHEST PAIN, #90 Prescribed by: GERSON TAVAREZ on 11/03/181535 Discontinued Medications Alprazolam (Xanax) 0.5 Mg Tablet, 0.5 MG PO PRN Q8HRS PRN for ANXIETY / AGITATION, Ref 0 (Reported) Entered as Reported by: Bhupinder Clark on 04/15/161735 Last Action: Discontinued on 11/03/18422 by Minh Jacobo Duloxetine Hcl (Cymbalta) 60 Mg Capsule.dr, 60 MG PO DAILY, (Reported) Entered as Reported by: Bhupinder Clark on 04/15/161735 Last Action: Discontinued on 11/03/18422 by Minh Jacobo Glipizide (Glipizide) 5 Mg Tablet, 5 MG PO BID, (Reported) Entered as Reported by: Bhupinder Clark on 04/15/161735 Last Action: Discontinued on 11/03/18419 by Minh Jacobo Insulin Lispro (Humalog) 100 Unit/1 Ml Cartridge, 15 UNIT SQ TIDBFRMEAL, (Reported) Entered as Reported by: STEFAN PAREDES on 07/28/15 1442 Last Action: Discontinued on 11/03/18419 by Minh Jacobo Insulin Regular, Human (Novolin R) 100 Unit/1 Ml Vial, 100 UNIT IJ TIDWMEALS for diabetes, (Reported) Entered as Reported by: Minh Jacobo on 11/03/18422 Last Action: Discontinued on 11/03/18422 by Minh Jacobo Metformin Hcl (Glucophage Xr) 750 Mg Tab.er.24h, 750 MG PO BID for ANTI- DIABETIC, Ref 0 (Reported) Entered as Reported by: JOHNNA NICHOLE on 12/26/15 182 Last Action: Discontinued on 11/03/18419 by GERSON Douglas MD Nov 03, 2018 15:38
--- NOTE | 2018-11-03 15:43 | NUR ---
Discharge Note: MEGHANA URENA Discharge instructions and discharge home medications reviewed with Patient and a copy given. All questions have been answered and understanding verbalized. The following instructions and handouts were given: d/c instructions Discontinued lines and drains: Peripheral IV intact. Patient discharged to Home or Self Care with Spouse via Ambulated
[2018-11-03] MEDS ORDERED: glipiZIDE 5 MG TABLET PO SCH (16:30)
[2018-11-03] MEDS ORDERED: metFORMIN 850 MG TABLET PO SCH (17:00)
[2018-11-03] MEDS ORDERED: INSULIN GLARGINE SYRINGE. SQ SCH (21:00)
[2018-11-03] MEDS ORDERED: GABAPENTIN 300 MG CAPSULE. PO SCH (21:00)
[2018-11-03] MEDS ORDERED: NORTRIPTYLINE 10 MG CAPSULE PO SCH (21:00)
[2018-11-04 04:09] LABS: HEMOGLOBIN A1C 9.3 % (4.8-5.6)
== END 2018-11-03 16:15 | disposition home or self-care (01) ==
LOC: ER 02:47 → 2 NORTH 03:10
PROVIDERS: ADMIT Internal Medicine; ATTEND Internal Medicine
DX: R07.89 Other chest pain (principal); K21.9 Gastro-esophageal reflux disease without esophagitis; N40.0 Benign prostatic hyperplasia without lower urinary tract symptoms; K58.9 Irritable bowel syndrome, unspecified; I42.9 Cardiomyopathy, unspecified; I48.91 Unspecified atrial fibrillation; E78.5 Hyperlipidemia, unspecified; I50.9 Heart failure, unspecified; E13.9 Other specified diabetes mellitus without complications; I11.0 Hypertensive heart disease with heart failure; F41.9 Anxiety disorder, unspecified; M19.90 Unspecified osteoarthritis, unspecified site; G47.33 Obstructive sleep apnea (adult) (pediatric); R00.2 Palpitations; E66.9 Obesity, unspecified; Z68.37 Body mass index [BMI] 37.0-37.9, adult; Z79.4 Long term (current) use of insulin; Z79.82 Long term (current) use of aspirin; Z79.899 Other long term (current) drug therapy; Z83.3 Family history of diabetes mellitus; Z87.11 Personal history of peptic ulcer disease
CPT/HCPCS: 36415; 71045; 78452; 80053; 80061; 83036; 83880; 84443; 84484; 85025; 93005; 93017; 93306; 96372; 99284; A9500; G0378; J1815; J2785; G0379

== ENCOUNTER → 2019-05-21 | Outpatient (CLI) | payer OTHER, MEDICARE ==
[~2019-05-21] MED LIST changes: -DIGO125T PO; +DIGO125T3 PO; +DORZ10DR21 EACHEYE; +INSU100V11 IJ; +INSU100V31 SQ; -METF750T2 PO; +METF750T39 PO; +METF850T8 PO; +NITR0.4T24 SL; +VENL75CA PO
--- NOTE | 2019-05-29 08:07 | CARD ---
MR#: [id number] Date of Study: 05/21/2019 Ordering Physician: SULTANA CONTE, Referring Physician: SULTANA CONTE, Tech: APPROVED REPORT PROCEDURE: Successful implantation of Biotronik Biomonitor loop recorder INDICATIONS: Syncope of uncertain etiology PROCEDURE DETAILS: An informed consent was obtained from patient. Patient was brought to the procedure suite and her le ft chest and shoulder were prepped and draped in the usual fashion. 20 mL of 2% lidocaine was infilt rated into the skin and subcutaneous tissues for local anesthesia. An incision was made in the left third intercostal space 1 inch from midsternal line and using the introducer/deployer with the tip, a Biotronik Biomonitor III provided was successfully placed in the subcutaneous tissue. The incision was closed in one layer. Hemostasis was secured. Patient tolerated the procedure well. There were no immediate complications. CONCLUSION: Successful implantation of Biotronik Biomonitor loop recorder for syncope of uncertain etiology. Signed by : Sultana Conte, Electronically Approved : 05/29/2019 08:06:12
== END ==
LOC: LINQ 11:00
PROVIDERS: ATTEND Internal Medicine Cardiovascular Disease
DX: Z45.09 Encounter for adjustment and management of other cardiac device (principal); R55 Syncope and collapse
CPT/HCPCS: 33285; C1764

== ENCOUNTER → 2019-07-02 | Outpatient (CLI) | payer OTHER, MEDICARE ==
[~2019-07-02] MED LIST changes: +CONTRAST GIVEN. MC PRN
[2019-07-02] MEDS: IOHEXOL 240 MG/ML 50ML VIAL. PO ONE (10:10)
[2019-07-02] MEDS: IOHEXOL 300 MG/ML 100ML VIAL. IV ONE (10:10)
--- NOTE | 2019-07-02 10:58 | RAD ---
Study: CT abdomen/pelvis with intravenous contrast Indication: Epigastric pain, constipation and diarrhea. Comparison: 07/28/2015 Technique: Helical CT imaging performed of the abdomen and pelvis after the intravenous administration of 75 cc Omnipaque 300 contrast. 40 cc oral Omnipaque 240 administered as well. Omnipaque Sagittal and coronal reformats were obtained. One or more of the following individualized dose reduction techniques were utilized for this examination: 1. Automated exposure control 2. Adjustment of the mA and/or kV according to patient size 3. Use of iterative reconstruction technique. Findings: Chest: Mild circumferential thickening of the distal esophageal wall. Liver: Hepatic steatosis. Gallbladder/Biliary Tree: Partially collapsed gallbladder. Unremarkable biliary tree. Pancreas: Partial fatty infiltration. Spleen: Scattered granulomas. Within normal limits for size. Adrenal Glands: Unremarkable. Kidneys/Ureters/Bladder: No significant interval change. Reproductive Organs: Unremarkable. Colon: No colonic obstruction. No pericolonic inflammatory change or suspicious wall thickening. Short segment narrowing of the proximal descending colon on image 44 series 2 favored secondary to underdistention. Appendix: Normal. Small Bowel: Nonobstructed. Stomach: Unremarkable. Vasculature: Unremarkable. Lymph Nodes: Unremarkable. Peritoneum and Body Wall: No acute abnormality. Bones: No acute or aggressive osseous process. Accelerated discogenic arthrosis at T8-T9 has worsened in the interim. Slightly worsened discogenic arthrosis at L4-L5 as well. Miscellaneous: None. Impression: 1. No acute abnormality is seen to account for the patient's symptoms. Only a mild amount of well-formed stool scattered throughout the colon and there are no findings to suggest an active colitis, enteritis or gastritis. Mild circumferential wall thickening of the distal esophageal wall is nonspecific but could represent the sequela of chronic reflux. 2. Hepatic steatosis. 3. Some progression of discogenic arthrosis at T8-T9 and L4-L5. No acute osseous abnormality. Electronically signed by: NKECHI ALEGRE MD (07/02/2019 10:54 AM) [id number]
== END | disposition home or self-care (01) ==
LOC: CT 08:32
PROVIDERS: ATTEND Nurse Practitioner Family
DX: K86.89 Other specified diseases of pancreas (principal); D73.89 Other diseases of spleen; K76.0 Fatty (change of) liver, not elsewhere classified; K63.89 Other specified diseases of intestine; M47.815 Spondylosis without myelopathy or radiculopathy, thoracolumbar region
CPT/HCPCS: 74177; Q9966; Q9967

== ENCOUNTER 2019-08-25 01:37 | Emergency (ER) | payer OTHER, MEDICARE ==
[~2019-08-25] VITALS: Ht 182.9 cm; Wt 120.0 kg
[~2019-08-25 01:37] MED LIST changes: -CONTRAST GIVEN. MC PRN
[2019-08-25] MEDS ORDERED: ASPIRIN CHEWABLE 81 MG TABLET. PO ONE (02:00)
[2019-08-25] MEDS ORDERED: MORPHINE SULFATE 2 MG/ML VIAL. IV/SQ PRN (02:00)
[2019-08-25] MEDS ORDERED: IV NORMAL SALINE 1000ML BAG 1,000 ML IV SCH (02:00)
[2019-08-25 02:25] LABS: BASO % 1 % (0-3); EOS # 0.2 x10^3/uL (0.0-0.7); EOS % 5 % (0-3); HEMATOCRIT 37.4 % (39.0-53.0); HEMOGLOBIN 12.7 g/dL (13.0-17.5); LYMPH # 1.3 x10^3/uL (1.0-4.8); LYMPH % 31 % (24-48); MEAN CORPUSCULAR HEMOGLOBIN 32 pg (25-35); MEAN CORPUSCULAR HGB CONC 34 g/dL (31-37); MEAN CORPUSCULAR VOLUME 95 fL (79-100); MONO # 0.4 x10^3/uL (0.0-1.1); MONO % 9 % (0-9); NEUT # 2.3 x10^3/uL (1.8-7.7); NEUT % 54 % (31-73); PLATELET COUNT 234 x10^3/uL (140-400); RED BLOOD COUNT 3.94 x10^6/uL (4.30-5.70); RED CELL DISTRIBUTION WIDTH 12.6 % (11.5-14.5); WHITE BLOOD COUNT 4.2 x10^3/uL (4.0-11.0)
[2019-08-25 02:28] LABS: CALCIUM 9.4 mg/dL (8.5-10.1); CREATININE 1.2 mg/dL (0.7-1.3); GFR 76.9; POTASSIUM 4.4 mmol/L (3.5-5.1)
[2019-08-25 02:34] LABS: ALBUMIN 3.6 g/dL (3.4-5.0); ALBUMIN/GLOBULIN RATIO 0.9 (1.0-1.7); MAGNESIUM 1.5 mg/dL (1.8-2.4); TOTAL BILIRUBIN 0.2 mg/dL (0.2-1.0); TOTAL PROTEIN 7.5 g/dL (6.4-8.2)
--- NOTE | 2019-08-25 03:10 | RAD ---
EXAM: CHEST ONE VIEW. HISTORY: Chest pain. COMPARISON: 11/03/2018. FINDINGS: A frontal view of the chest is obtained. A cardiac monitoring device projects over the left chest. There are no confluent infiltrates. There is no pneumothorax or pleural effusion. The heart is not enlarged. IMPRESSION: 1. No confluent infiltrates. Electronically signed by: Isra Minor MD (08/25/2019 3:07 AM) [facility] HOSPITALNuzhat
--- NOTE | 2019-08-25 03:16 | EKG ---
[facility] [address] [place] [address] Test Date: 2019-08-25 Test Time: 01:45:37 Pat Name: MEGHANA URENA Department: Room: Gender: M Environmental Programs Manager: : 1965 Requested By: SANKET CHOWDHURY Order Number: [id number] Reading MD: Measurements Intervals [place] Rate: 90 P: 76 [place]: 170 QRS: 49 QRSD: 78 T: 21 QT: 304 QTc: 375 Interpretive Statements SINUS RHYTHM ST & T ABNORMALITY, CONSIDER RECENT INFERIOR MYOCARDIAL OR PERICARDIAL DAMAGE ABNORMAL ECG RI6.01 No previous ECG available for comparison
[2019-08-25 03:17] LABS: BILIRUBIN,URINE NEGATIVE (NEG); CLARITY,URINE CLEAR; COLOR,URINE YELLOW; NITRITE,URINE NEGATIVE (NEG); PROTEIN,URINE NEGATIVE (NEG-TRACE); UROBILINOGEN,URINE 0.2 mg/dL (0.2 mg/dL)
[2019-08-25 03:22] LABS: SQUAMOUS EPITHELIAL CELL,UR OCC /LPF
[2019-08-25 03:23] LABS: BACTERIA,URINE 0 /HPF (0-FEW); WBC,URINE RARE /HPF (0-4)
[2019-08-25 04:34] VITALS: BP 160/82
[2019-08-25] MEDS ORDERED: TRAM50TA PO (04:37)
--- NOTE | 2019-08-25 04:37 | PHYS DOC ---
Past Medical History Past Medical History: A-Fib, CHF, Diabetes-Type I, GERD, Other Additional Past Medical Histor: BPH, cardiomyopathy Past Surgical History: Other Additional Past Surgical Histo: ANKLE SURGERY, eye surgery Smoking Status: Never Smoker Alcohol Use: Sober Drug Use: None General Adult EDM: Chief Complaint: CHEST PAIN HPI: HPI: Patient is a 54 year old male who presents with complaint of chest discomfort that started on Friday and has continued since that time but this evening it had gotten worse to where it was like a piercing pain in his chest that he describes as sharp and stabbing in nature. He does indicate that pain is wor sened with deep breathing. He denies any nausea, vomiting or diaphoresis. Patient does indicate that he has a history of cardiac disease. [] Review of Systems: Review of Systems: Constitutional: Denies fever or chills. [] Respiratory: Denies cough or shortness of breath. [] Cardiovascular: Complains of chest pain. [] GI: Denies abdominal pain, nausea, vomiting, bloody stools or diarrhea. [] Neurologic: Denies headache, focal weakness or sensory changes. [] A full 10 point review of systems has been reviewed and is otherwise negative. Heart Score: Risk Factors: Risk Factors: DM, Current or recent (<one month) smoker, HTN, HLP, family history of CAD, obesity. Risk Scores: Score 0 - 3: 2.5% MACE over next 6 weeks - Discharge Home Score 4 - 6: 20.3% MACE over next 6 weeks - Admit for Clinical Observation Score 7 - 10: 72.7% MACE over next 6 weeks - Early Invasive Strategies Current Medications: Current Medications Medications (Trade) Dose Ordered Sig/[facility] Start Time Stop Time Status Last Admin Dose Admin Aspirin (Aspirin Chewable) 324 mg 1X ONCE 08/25/19 02:00 08/25/19 02:03 DC 08/25/19 02:12 324 MG Morphine Sulfate (Morphine Sulfate) 2 mg PRN Q15MIN PRN 08/25/19 02:00 08/26/19 01:59 08/25/19 02:14 2 MG Sodium Chloride 1,000 ml @ 1,000 mls/hr Q1H 08/25/19 02:00 08/25/19 02:59 DC 08/25/19 02:12 1,000 MLS/HR Allergies: Allergies: Allergies Coded Allergies Type Severity Reaction Last Updated Verified No Known Drug Allergies 06/16/17 No Physical Exam: PE: Constitutional: Well developed, well nourished, no acute distress, non-toxic appearance. [] HENT: Normocephalic, atraumatic, bilateral external ears normal, oropharynx moist, no oral exudates, nose normal. [] Eyes: PERRLA, EOMI, conjunctiva normal, no discharge. [] Neck: Normal range of motion, no tenderness, supple, no stridor. [] Cardiovascular: Regular rate and rhythm [] Lungs & Thorax: Bilateral breath sounds clear to auscultation [] Abdomen: Bowel sounds normal, soft, no tenderness, no masses, no pulsatile masses. [] Skin: Warm, dry, no erythema, no rash. [] Extremities: No tenderness, no cyanosis, no clubbing, ROM intact, no edema. [] Neurologic: Alert and oriented X 3, normal motor function, normal sensory func tion, no focal deficits noted. [] Current Patient Data: Labs: Laboratory Tests Test 08/25/19 02:00 08/25/19 02:50 08/25/19 04:00 White Blood Count 4.2 x10^3/uL (4.0-11.0) Red Blood Count 3.94 x10^6/uL (4.30-5.70) L Hemoglobin 12.7 g/dL (13.0-17.5) L Hematocrit 37.4 % (39.0-53.0) L Mean Corpuscular Volume 95 fL (79-100) Mean Corpuscular Hemoglobin 32 pg (25-35) Mean Corpuscular Hemoglobin Concent 34 g/dL (31-37) Red Cell Distribution Width 12.6 % (11.5-14.5) Platelet Count 234 x10^3/uL (140-400) Neutrophils (%) (Auto) 54 % (31-73) Lymphocytes (%) (Auto) 31 % (24-48) Monocytes (%) (Auto) 9 % (0-9) Eosinophils (%) (Auto) 5 % (0-3) H Basophils (%) (Auto) 1 % (0-3) Neutrophils # (Auto) 2.3 x10^3/uL (1.8-7.7) Lymphocytes # (Auto) 1.3 x10^3/uL (1.0-4.8) Monocytes # (Auto) 0.4 x10^3/uL (0.0-1.1) Eosinophils # (Auto) 0.2 x10^3/uL (0.0-0.7) Basophils # (Auto) 0.0 x10^3/uL (0.0-0.2) Sodium Level 137 mmol/L (136-145) Potassium Level 4.4 mmol/L (3.5-5.1) Chloride Level 101 mmol/L (98-107) Carbon Dioxide Level 31 mmol/L (21-32) Anion Gap 5 (6-14) L Blood Urea Nitrogen 22 mg/dL (8-26) Creatinine 1.2 mg/dL (0.7-1.3) Estimated GFR (Cockcroft-Gault) 76.9 BUN/Creatinine Ratio 18 (6-20) Glucose Level 238 mg/dL (70-99) H Calcium Level 9.4 mg/dL (8.5-10.1) Magnesium Level 1.5 mg/dL (1.8-2.4) L Total Bilirubin 0.2 mg/dL (0.2-1.0) Aspartate Amino Transferase (AST) 19 U/L (15-37) Alanine Aminotransferase (ALT) 30 U/L (16-63) Alkaline Phosphatase 88 U/L (46-116) Troponin I Quantitative < 0.017 ng/mL (0.000-0.055) < 0.017 ng/mL (0.000-0.055) SQ-Eqy-E-Type Natriuretic Peptide 21 pg/mL (0-124) Total Protein 7.5 g/dL (6.4-8.2) Albumin 3.6 g/dL (3.4-5.0) Albumin/Globulin Ratio 0.9 (1.0-1.7) L Lipase 380 U/L (73-393) Urine Collection Type Unknown Urine Color Yellow Urine Clarity Clear Urine pH 5.0 (<5.0-8.0) Urine Specific [place] 1.020 (1.000-1.030) Urine Protein Negative mg/dL (NEG-TRACE) Urine Glucose (UA) 100 mg/dL (NEG) Urine Ketones (Stick) Negative mg/dL (NEG) Urine Blood Trace (NEG) Urine Nitrite Negative (NEG) Urine Bilirubin Negative (NEG) Urine Urobilinogen Dipstick 0.2 mg/dL (0.2 mg/dL) Urine Leukocyte Esterase Negative (NEG) Urine RBC 3-5 /HPF (0-2) Urine WBC Rare /HPF (0-4) Urine Squamous Epithelial Cells Occ /LPF Urine Bacteria 0 /HPF (0-FEW) Urine Mucus Mod /LPF Laboratory Tests 08/25/19 02:00 Laboratory Tests 08/25/19 02:00 Vital Signs: Vital Signs Date Time Temp Pulse Resp B/P (MAP) Pulse Ox O2 Delivery O2 Flow Rate FiO2 08/25/19 04:15 82 16 161/72 (101) 96 Room Air 08/25/19 01:50 98.2 98.2 EKG: EKG: [] Radiology/Procedures: Radiology/Procedures: [] Impression: PROCEDURE: PORTABLE CHEST 1V EXAM: CHEST ONE VIEW. HISTORY: Chest pain. COMPARISON: 11/03/2018. FINDINGS: A frontal view of the chest is obtained. A cardiac monitoring device projects over the left chest. There are no confluent infiltrates. There is no pneumothorax or pleural effusion. The heart is not enlarged. IMPRESSION: 1. No confluent infiltrates. Electronically signed by: Isra Minor MD (08/25/2019 3:07 AM) [facility] Course & Med Decision Making: Course & Med Decision Making Pertinent Labs and Imaging studies reviewed. (See chart for details) [] Dragjohn Disclaimer: Dragon Disclaimer: This electronic medical record was generated, in whole or in part, using a voice recognition dictation system. Departure Departure Impression: Primary Impression: Chest wall pain Disposition: 01 HOME, SELF-CARE Condition: STABLE Referrals: SHIRLEY GARCIA MD (PCP) Patient Instructions: Chest Wall Pain Scripts Tramadol Hcl (TRAMADOL HCL) 50 Mg Tablet 50 MG PO Q6HRS PRN for PAIN, #20 TAB Prov: SANKET CHOWDHURY Jr. DO 08/25/19 Justicifation of Admission Dx: Justifications for Admission: Justification of Admission Dx: Comment: (Not applicable) SANKET CHOWDHURY Jr. DO Aug 25, 2019 04:37
== END 2019-08-25 04:41 | disposition home or self-care (01) ==
LOC: ER 01:37
DX: R07.89 Other chest pain (principal); I48.91 Unspecified atrial fibrillation; K21.9 Gastro-esophageal reflux disease without esophagitis; E10.9 Type 1 diabetes mellitus without complications; Z86.79 Personal history of other diseases of the circulatory system
CPT/HCPCS: 36415; 71045; 80053; 81001; 83690; 83735; 83880; 84484; 85025; 93005; 96374; 99285; J2270; J7030

== ENCOUNTER → 2020-04-11 | Outpatient (CLI) | payer BC ==
[~2020-04-11] MED LIST changes: +TRAM50TA PO
[2020-04-11 10:56] LABS: BASO % 1 % (0-3); EOS # 0.2 x10^3/uL (0.0-0.7); EOS % 3 % (0-3); HEMATOCRIT 36.8 % (39.0-53.0); HEMOGLOBIN 12.3 g/dL (13.0-17.5); LYMPH # 1.3 x10^3/uL (1.0-4.8); LYMPH % 30 % (24-48); MEAN CORPUSCULAR HEMOGLOBIN 32 pg (25-35); MEAN CORPUSCULAR HGB CONC 34 g/dL (31-37); MEAN CORPUSCULAR VOLUME 96 fL (79-100); MONO # 0.4 x10^3/uL (0.0-1.1); MONO % 10 % (0-9); NEUT # 2.5 x10^3/uL (1.8-7.7); NEUT % 56 % (31-73); PLATELET COUNT 243 x10^3/uL (140-400); RED BLOOD COUNT 3.83 x10^6/uL (4.30-5.70); RED CELL DISTRIBUTION WIDTH 12.4 % (11.5-14.5); WHITE BLOOD COUNT 4.5 x10^3/uL (4.0-11.0)
[2020-04-11 11:08] LABS: ALBUMIN 3.6 g/dL (3.4-5.0); ALBUMIN/GLOBULIN RATIO 0.9 (1.0-1.7); CALCIUM 9.4 mg/dL (8.5-10.1); TOTAL PROTEIN 7.8 g/dL (6.4-8.2)
[2020-04-11 11:09] LABS: CREATININE 1.3 mg/dL (0.7-1.3); GFR 69.9; POTASSIUM 4.3 mmol/L (3.5-5.1); TOTAL BILIRUBIN 0.3 mg/dL (0.2-1.0)
[2020-04-11 11:17] LABS: CHOLESTEROL/HDL RATIO 2.4
[2020-04-11 11:19] LABS: FREE T4 1.04 ng/dL (0.76-1.46); THYROID STIM HORMONE (TSH) 1.685 uIU/mL (0.358-3.74)
[2020-04-11 20:08] LABS: CREAT RD UR 142.8 mg/dL (Not Estab.); MICROALB RD UR 126.7 ug/mL (Not Estab.)
[2020-04-12 02:08] LABS: HEMOGLOBIN A1C 7.3 % (4.8-5.6)
== END ==
LOC: LAB 09:58
PROVIDERS: ATTEND Family Medicine
DX: E11.42 Type 2 diabetes mellitus with diabetic polyneuropathy (principal); R10.13 Epigastric pain; R19.7 Diarrhea, unspecified
CPT/HCPCS: 80053; 80061; 82043; 82570; 83036; 83690; 84439; 84443; 85025

== ENCOUNTER → 2020-04-11 | Outpatient (CLI) | payer BC, MEDICARE, OTHER ==
--- NOTE | 2020-04-11 16:55 | CARD ---
MR#: [id number] Date of Study: 04/11/2020 Ordering Physician: SULTANA PULIDO, Referring Physician: SULTANA PULIDO Tech: Polina Tran [facility] APPROVED REPORT EXAM: Two-dimensional and M-mode echocardiogram with Doppler and color Doppler. Other Information Quality : AverageHR: 100bpm Rhythm : Tachycardia INDICATION Cardiomyopathy 2D DIMENSIONS RVDd3.2 (2.9-3.5cm)Left Atrium(2D)4.4 (1.6-4.0cm) IVSd1.2 (0.7-1.1cm)Aortic Root(2D)2.9 (2.0-3.7cm) LVDd4.7 (3.9-5.9cm)LVOT Diameter2.3 (1.8-2.4cm) PWd1.2 (0.7-1.1cm)LVDs3.0 (2.5-4.0cm) FS (%) 36.0 %SV66.8 ml LVEF(%)65.6 (>50%) Aortic Valve AoV Peak Cory.136.3cm/sAoV VTI28.8cm AO Peak GR.7.4mmHgLVOT Peak Cory.89.9cm/s AO Mean GR.4mmHgAVA (VMAX)2.83cm2 Mitral Valve MV E Ixakrddm889.7cm/sMV DECEL ONPF225nv MV A Mtwuyikj57.2cm/sE/A Ratio7.8 LEFT VENTRICLE The left ventricle is normal size. There is borderline to mild concentric left ventricular hypertroph y. The left ventricular systolic function is normal and the ejection fraction is within normal range. EF 55% There is normal LV segmental wall motion. Transmitral Doppler flow pattern is Grade II-pseudo normal filling dynamics. RIGHT VENTRICLE The right ventricle is normal size. The right ventricle is mildly hypertrophied. The right ventricula r systolic function is normal. ATRIA The left atrium size is normal. The right atrium size is normal. The interatrial septum is intact wit h no evidence for an atrial septal defect or patent foramen ovale as noted on 2-D or Doppler imaging. AORTIC VALVE The aortic valve is thickened. Doppler and Color Flow revealed no significant aortic regurgitation. T here is no significant aortic valvular stenosis. MITRAL VALVE The mitral valve is normal in structure and function. There is no evidence of mitral valve prolapse. There is no mitral valve stenosis. Doppler and Color Flow revealed no mitral valve regurgitation note d. TRICUSPID VALVE The tricuspid valve is normal in structure and function. Doppler and Color Flow revealed no tricuspid valve regurgitation noted. There is no tricuspid valve stenosis. PULMONIC VALVE Doppler and Color Flow revealed no pulmonic valvular regurgitation. There is no pulmonic valvular su nosis. GREAT VESSELS The aortic root is normal in size. The ascending aorta is normal in size. The IVC is normal in size a nd collapses >50% with inspiration. PERICARDIAL EFFUSION There is no evidence of significant pericardial effusion. Critical Notification Critical Value: No <Conclusion> The left ventricular systolic function is normal and the ejection fraction is within normal range. EF 55% There is normal LV segmental wall motion. Signed by : Adonis Perez, Electronically Approved : 04/11/2020 16:55:27
== END ==
LOC: ECHO 09:53
PROVIDERS: ATTEND Internal Medicine Cardiovascular Disease
DX: I51.7 Cardiomegaly (principal); I42.8 Other cardiomyopathies
CPT/HCPCS: 93306